=== PATIENT | male | born 1995 | race Caucasian/White ===

== ENCOUNTER 2023-12-26 14:25 | Inpatient (IN) ==
--- OUTSIDE RECORDS SUMMARY | 2023-12-26 14:32 | External Medical Summary | Summary of Care ---
Author Name Unknown Organization [facility] Address [address] [place] [address] Phone [phone] Care Team Providers Care Scrap Bunch Maker Name Role Phone Macho Mckay PA-C Primary Care Provi sumeet Reason for Visit * Reason Onset Date Comments Test Results 11/02/2023 Encounter Details Date Type Department Care Team (Late st Contact Info) Description 11/02/2023 Telephone Orthopaedics [facility] [address] [facility] [[email or web address] [place] [address] Services, Scheduling [address] [place] [address] Test Results Allergies No known active allergiesdocumented as of this encounter (statuses as of 11/02/2023) Medications Medication Sig Dispensed Refills Start Date End Date Status Amphetamine-Dextroa mphetamine 10 MG Oral Tablet Take 1 Tablet by mouth in the morning and 1 Tablet before bedtime. 0 Active Meclizine HCl 25 MG Oral Tablet (Antivert) Take 1 Tablet by mouth every 8 hours as needed for Dizziness. 30 Tablet 0 04/30/2023 Active Fluticasone Propionate 50 MCG/ACT Nasal Suspension (Flonase) Administer 1 [place] into nostril in the morning. 16 g 3 04/30/2023 Active Additional Information Patient not taking.Reported on 09/28/2023 Cyclobenzaprine HCl 10 MG Oral Tablet (Flexeril) Take 1 Tablet by mouth 3 times a day as needed for Muscle spasms. 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 documented as of this encounter (statuses as of 11/02/2023) Social History Tobacco Use Types Packs/Day Years Used Date Smoking Tobacco: Never Smokeless Tobacco: Current Chew Alcohol Use Standard Drinks/Week Comments Yes 0 (1 standard drink = 0.6 oz pur e alcohol) Occas Sex and Gender Information Value Date Recorded Sex Assigned at Not on file Gender Identity Not on file Sexual Orientation Not on file Job Start Date Occupation Industry Not on file Not on file Not on file documented as of this encounter Miscellaneous Notes * Telephone Encounter - Milagros Soto OSA - 11/02/2023 12:58 PM EST Mom of pt calling to see if someone can return her call to discuss pt MRI results. Ph. [phone] Please advise. * Telephone Encounter - Bossman Brown OSA - 11/02/2023 12:43 PM EST Mom of pt calling to see if someone can return her call to discuss pt MRI results. Ph. [phone] documented in this encounter Plan of Treatment Upcoming Encounters Date Type Department Care Team (Late st Contact Info) Description 11/20/2023 10:00 AM EST Office Visit [facility]ventional Pain [facility] [place] [address] Renee Christina PA-C [address] [place] [address] 01/14/2024 2:30 PM EDT Office Visit Orthopaedics Spine Surgery, Fletcher Zacarias [address] [place] [address] Bhanu Medrano MD [address] [place] [address] Health Maintenance Due Date Last Done Comments COVID-19 Vaccine (#1) 02/22/1996 DTaP,Tdap,and Td Vaccines (6 - Tdap) 2006 05/11/2000, 02/23/1997, 02/23/1997, Additional history exists Depression Screening 2007 HIV Screening 2010 Hepatitis C Screening 2013 Influenza Vaccine (FLU shot) (#1) 2023 Hepatitis B Completed 05/05/1996, 04/21, 1995, Additional history exists GARDASIL-HPV IMMUNIZATION SERIES Aged Out No longer eligible based on patient's age to complete this topic MENINGOCOCCAL (MENACTRA/MENVEO) Aged Out No longer eligible based on patient's age to complete this topic Pneumococcal Vaccine: Pediatrics (0 to 5 Years) and At-Risk Patients (6 to 64 Years) Aged Out No longer eligible based on patient's age to complete this topic documented as of this encounter Medical Devices Not on filedocumented as of this encounter Care Teams Scrap Bunch Maker Relationship Specialty Start Date End Date Macho Mckay PA-C [address] [address] [place] [address] PCP - General Physician Coding Compliance Auditor 04/30/23 documented as of this encounter
--- OUTSIDE RECORDS SUMMARY | 2023-12-26 14:32 | External Medical Summary | Summary of Care ---
Author Name Unknown Organization [facility] Address [address] [facility] [place] [address] Phone [phone] Care Team Providers Care Immigration Associate Name Role Phone Macho Mckay PA-C Primary Care Provi sumeet Reason for Visit * Reason Onset Date Comments Precert Denied 10/30/2023 L Spine Mri ivette ed, please call for p2p Encounter Details Date Type Department Care Team (Late st Contact Info) Description 10/30/2023 Telephone Orthopaedics [facility] [address] [place] [address] SharerSusannah PA-C [address] [place] [address] Precert Denied (L Spine Mri denied, please... Allergies No known active allergiesdocumented as of [...] 50 MCG/ACT Nasal Suspension (Flonase) Administer 1 [place] into nostril in the morning. 16 g [...] encounter Miscellaneous Notes * Telephone Encounter - Susannah Mendez PA-C - 11/02/2023 1:40 PM EST Peer to peer completed and MRI L spine was approved. Conformation number [id number] * Telephone Encounter - Lawrence Andrade OSA - 10/30/2023 10:02 AM EST The Mri Lumbar Spine requested for Sampson Fulton is currently in Peer to Peer Review with Theron. Please have a Nurse, ANGEL, GUERO or Physician [phone], Option 2 reference tracking # [id number] and speak with a Physician Reviewer to procure the required authorization. After reviewing your clinical notes, a Peer to Peer Review is required prior to approval of the requested study. Please call to obtain authorization. Rationale Your doctor told us that you are having lower back pain that travels to your hip and/or leg. Imaging requires six weeks of provider directed treatment to be completed. This must have been completed in the past three months without improved symptoms. Contact (via office visit, phone, email, or messaging) must occur after the treatment is completed. This has not been met because: You have not completed six weeks of provider directed treatment. The provider directed treatment did not occur within the last three months Alternatively, if the Peer to Peer will not be completed, please have a Clinician contact this patient to provide an alternative treatment plan. SALINA Vera 10/30/2023, 10:02 AM documented in this encounter Plan of Treatment Upcoming Encounters Date Type Department Care Team (Late st Contact Info) Description 11/20/2023 10:00 AM EST Office Visit Interventional Pain Center, [facility] [address] [place] [address] Renee Christina PA-C [address] [place] [address] 01/14/2024 2:30 PM EDT Office Visit Orthopaedics Spine Surgery, [address], Fletcher [address] [place] [id number] Bhanu Medrano MD [address] [facility] [place] [address] Health Maintenance Due Date Last Done Comments [...] filedocumented as of this encounter Care Teams Immigration Associate Relationship Specialty Start Date End Date Macho Mckay PA-C [address] [address] [place] [address] PCP - General Physician Fuel Cell Engineer 04/30/23 documented as of this encounter
--- OUTSIDE RECORDS SUMMARY | 2023-12-26 14:32 | External Medical Summary | Summary of Care ---
Author Name Unknown Organization [facility] Address [address] [place] [address] Phone [phone] Care Team Providers Care Shirt Sorter Name Role Phone Macho Mckay PA-C Primary Care Provi sumeet Reason for Referral * Evaluate & Treat - Unlimited Visits (Within 10 days (routine)) - Pending Review Specialty Diagnoses / Procedures Referred By Contac t Referred To Contact Physical Therapy / Physical Medicine And Rehab Diagnoses Lumbar back pain with radiculopathy affecting right lower extremity SharerSusannah PA-C [address] [place] [address] Referral ID Status Reason Start Date Expiration Date Visits Requested Visits Authorized [id number] Pending Review Specialty Services Required 10/26/[phone] Question Answer Referral Priority Within 10 days (routine) Where should this appointment be scheduled? External Comments Core strengthening, stretching, conditioning, lower extremity strengthening Modalities as needed for pain relief Physical therapy 2 x a week for 6 weeks with home program * Evaluate & Treat - Unlimited Visits (Within 10 days (routine)) - Pending Review Specialty Diagnoses / Procedures Referred By Contac t Referred To Contact Pain Management / Pain Medicine Diagnoses Lumbar back pain with radiculopathy affecting right lower extremity Susannah Bauer PA-C [address] [place] [address] Referral ID Status Reason Start Date Expiration Date Visits Requested Visits Authorized [id number] Pending Review Specialty Services Required 10/26/2023 [id number] Question Answer Referral Priority Within 10 days (routine) Where should this appointment be scheduled? [facility] Reason for referral? Interventional Pain Management - (Injection) What condition is the patient being referred for? Lumbar Radiculopathy What is the preferred location to have this test performed? [facility] Comments Patient Name: Sampson Fulton Date of : 1995 Department Phone Number: MRI or CT (if unable to have a MRI) is recommended if any of the following apply: 1. Patient has neck or back pain with radiation to extremities. A previous MRI will be accepted if symptoms unchanged since prior MRI. 2. Spinal surgery since last MRI. If yes, order a MRI with and without contrast. 3. Hx or ongoing cancer treatment. Patient will need spine x-ray (Ap/Lat) for axial neck or back pain if not done previously. Fax No. [facility] [phone] or contact manager front [phone] Fax No. [facility] [phone] or contact manager front [phone] Fax No. [facility] [phone] or contact manager front [phone] * Precert (Within 10 days (routine)) - Pending Review Specialty Diagnoses / Procedures Referred By Kacey bautista Referred To Contact Radiology Diagnoses Lumbar back pain with radiculopathy affecting right lower extremity Procedures MRI L SPINE WO CONTRAST Susannah Bauer PA-C [address] [place] [address] Referral ID Status Reason Start Date Expiration Date Visits Requested Visits Authorized [id number] Pending Review Precert 10/26/2023 04/23/[phone] Reason for Visit * Reason Comments NEW PATIENT Right hip/lower back * Evaluate & Treat - Unlimited Visits (Within 10 days (routine)) - Pending Review Specialty Diagnoses / Procedures Referred By Kacey bautista Referred To Contact Orthopaedic Surgery / Orthopedics Diagnoses Chronic right hip pain Jona Farley MD [address] [place] [address] Referral ID Status Reason Start Date Expiration Date Visits Requested Visits Authorized [id number] Pending Review Specialty Services Required 09/28/[phone] Encounter Details Date Type Department Care Team (Latest Contact Info) Description 10/26/2023 10:00 AM EST Office Visit Orthopaedics [facility] [address] [place] [address] SharerSusannah PA-C [address] [place] [address] Lumbar back pain with radiculopathy affecting right lower extremity* Allergies No known active allergiesdocumented as of this encounter (statuses as of 10/26/2023) Medications Medication Sig Dispensed Refills Start Date [...] 50 MCG/ACT Nasal Suspension (Flonase) Administer 1 [place] into nostril in the morning. 16 g 3 04/30/2023 Active Additional Information Patient not taking.Reported on 09/28/2023 Cyclobenzaprine HCl 10 MG Oral Tablet (Flexeril) Take 1 Tablet by mouth 3 times a day as needed for Muscle spasms. 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 History: Sampson Fulton reports that right back pain started 1 year ago. Patient denies any injury. Admits his work involves heavy lifting. 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 Reports pain along the right low back which radiates into the thigh and lower leg to the ankle. Pain is worse with seated or supine positions. States pain became severe about 8 weeks ago and is limiting his activities. States he is missing work and is unable to dress himself. Pain is relieved by standing. Patient has tried multiple rounds of prednisone, muscle relaxer and antiinflammatories. No numbness, tingling, burning, weakness. The patient denies associated perineal numbness, progressive weakness, or incontinence of bowel/bladder. Denies fever, chills, weight loss. The patient reports a history of: chronic right sided back pain treated with healthcare administrator Previous Surgery / Treatment of the spine: no LAURY No no spine surgery The patient reports the problem is not work related. 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 Review of systems: All others negative except those noted above in HPI. Review of patient's allergies indicates: No Known Allergies Current Outpatient Medications Medication Sig Dispense Refill Amphetamine-Dextroamphetamine 10 MG Oral Tablet Take 1 Tablet by mouth in the morning and 1 Tablet before bedtime. Meclizine HCl 25 MG Oral Tablet (Antivert) Take 1 Tablet by mouth every 8 hours as needed for Dizziness. 30 Tablet 0 Fluticasone Propionate 50 MCG/ACT Nasal Suspension (Flonase) Administer 1 [place] into nostril in themorning. (Patient not taking: Reported on 09/28/2023) 16 g 3 Cyclobenzaprine HCl 10 MG Oral Tablet (Flexeril) Take 1 Tablet by mouth 3 times a day as needed forMuscle spasms. (Patient not taking: Reported on 09/28/2023) 30 Tablet 0 No current facility-administered medications for this visit. No past medical history on file. Patient Active Problem List Diagnosis Code Attention deficit hyperactivity disorder (ADHD), predominantly inattentive type F90.0 No past surgical history on file. Social History Socioeconomic History Marital status: Spouse name: Not on file Number of children: Not on file Years of education: Not on file Highest education level: Not on file Occupational History Not on file Tobacco Use Smoking status: Never Smokeless tobacco: Current Types: Chew Vaping Use Vaping Use: Never used Substance and Sexual Activity Alcohol use: Yes Comment: Occas Drug use: Not Currently Sexual activity: Not on file Other Topics Concern Not on file Social History Narrative Not on file Social Determinants of Health Financial Resource Strain: Not on file Food Insecurity: Not on file Transportation Needs: Not on file Physical Activity: Not on file Stress: Not on file Social Connections: Not on file Intimate Partner Violence: Not on file Housing Stability: Not on file No family history on file. Family History; none relevant to today's HPI Objective: Physical Exam There were no vitals filed for this visit. Estimated body mass index is 29.62 kg/m as calculated from the following: Height as of 09/28/23: 1.905 m (6' 3"). Weight as of 09/28/23: 107.5 kg (237 lb). General: generally well-nourished and in no acute distress HEENT: normocephalic, atraumatic, sclera anicteric. Psych: mood and affect normal , cooperative Card: Peripheral pulses with regular rate and rhythm in affected extremity (s), Resp: equal chest rise, non-tachypneic, non-labored breathing Skin: no rash, normal Neuro: Sensation: normal on affected extremity (s) MSK: Back exam: Gait: Normal reciprocal gait. Non-antalgic without an assistive device on smooth flat indoor surface. Able to toe/heel/tandem walk without difficulty, and no loss of balance No pes planus, no pes cavus. Inspection: no overlying skin changes, no deformity Palpation: no tenderness to palpation Range of Motion: Lumbar ROM: limited forward flexion Pain worse with flexion Strength Abduction: R - 5/5 L - 5/5 Internal Rotation: R - 5/5 L - 5/5 Quads: R - 5/5 L - 5/5 Hamstrings: R - 5/5 L - 5/5 Adduction: R - 5/5 L - 5/5 Trendelenburg positive Bilateral Nerve root tests: Supine SLR- Right: positive Left: negative Hip/Pelvis exam Log Roll: negative Bilateral CALEB: negative Bilateral FADIR: negative Bilateral. Radiology (I have personally reviewed the following films): 10/26/2023 Lumbar spine x-ray reveals facet arthropathy and degenerative disc disease of the lower lumbar spine. No spondylolisthesis. No dynamic instability with flexion and extension. Assessment and Plan: Lumbar back pain with radiculopathy affecting right lower extremity (Primary) - XR L SPINE COMPLETE - MRI L SPINE WO CONTRAST; Future; Expected date: 11/02/2023 - PAIN MEDICINE REFERRAL OP - PHYSICAL THERAPY REFERRAL OP Given duration and severity of symptoms will obtain MRI. Recommend course of physical therapy. Discussed activity modification and ice/heat as needed for pain. Reviewed red flag symptoms of including progressive weakness or bowel/bladder incontinence. Aware to seek urgent care if such occurs. Susannah Bauer PA-C [facility] [address] [address] documented in this encounter Nursing Notes * Juana Walker MED ASSIST - 10/26/2023 10:09 AM EST Patient presents today for right lower back pain. Patient has been to [facility] multiple times for his hip. He was at chiropractor this morning, and they told him that there could be a bulging disk that is putting pressure on Sciatica nerve. Patient is unable to sit and lay down. NKI. Patient has appointment on 11/16 for MRI with outside. documented in this encounter Miscellaneous Notes * Addendum Note - Susannah Bauer PA-C - 10/26/2023 12:10 PM ESTAddended by: SUSANNAH BAUER on: 10/26/2023 12:10 PM Modules accepted: Level of Service documented in this encounter Plan of Treatment Upcoming Encounters Date Type Department Care Team (Late st Contact Info) Description 11/06/2023 4:00 PM EST Imaging Radiology [facility] 1st Floor, [place] [address] [place] [address] 12/03/2023 8:45 AM EDT Office Visit Interventional Pain Center, [facility] [address] [place] [address] Andrew Olsen DO [address] [place] [phone] 01/14/2024 2:30 PM EDT Office Visit Orthopaedics Spine Surgery, Fletcher Zacarias [address] [place] [address] Bhanu Medrano MD [address] [place] [address] Pending Results Name Type Priority Associated Diagnoses Date /Time XR L SPINE COMPLETE Medical Imaging Routine Lumbar back pain with radiculopathy affecting right lower extremity 10/26/2023 10:33 AM EST Scheduled Orders Name Type Priority Associated Diagnoses Orde r Schedule MRI L SPINE WO CONTRAST Medical Imaging Routine Lumbar back pain with radiculopathy affecting right lower extremity Expected: 11/02/2023 (Approximate), Expires: 11/23/2024 Scheduled Referrals Name Type Priority Associated Diagnoses Orde r Schedule PAIN MEDICINE REFERRAL OP Referral Within 10 days (routine) Lumbar back pain with radiculopathy affecting right lower extremity Ordered: 10/26/2023 PHYSICAL THERAPY REFERRAL OP Referral Within 10 days (routine) Lumbar back pain with radiculopathy affecting right lower extremity Ordered: 10/26/2023 Health Maintenance Due Date Last Done Comments [...] Not on filedocumented as of this encounter Visit Diagnoses Diagnosis Lumbar back pain with radiculopathy affecting right lower extremity- Primary documented in this encounter Care Teams Shirt Sorter Relationship Specialty Start Date End Date Macho Mckay PA-C [address] [address] [place] [address] PCP - General Physician Physician Liaison 04/30/23 documented as of this encounter
--- OUTSIDE RECORDS SUMMARY | 2023-12-26 14:32 | External Medical Summary | Summary of Care ---
Author Name Unknown Organization [facility] Address [address] [facility] [address] Phone [phone] Care Team Providers Care Mold Maker Plaster Name Role Phone Macho Mckay PA-C Primary Care Provi sumeet Reason for Visit * Reason Onset Date Comments Follow Up 12/25/2023 Encounter Details Date Type Department Care Team (Late st Contact Info) Description 12/25/2023 Telephone Interventional Pain Center, [facility] [address] [place] [id number] Andrew Olsen DO [address] [place] [phone] Follow Up Allergies No known active allergiesdocumented as of this encounter (statuses as of 12/25/2023) Medications Medication Sig Dispensed Refills Start Date [...] 50 MCG/ACT Nasal Suspension (Flonase) Administer 1 [place] into nostril in the morning. 16 g 3 04/30/2023 Active Cyclobenzaprine HCl 10 MG Oral Tablet (Flexeril)Indicatio ns:Lumbar radicular pain Take 1 Tablet by mouth as needed for Muscle spasms. Do not take more than three per day. 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 He is apparently in so much pain he can barely walk and would like to be seen today. Are you able to call them to seeif we can do anything? documented in this encounter Plan of Treatment Upcoming Encounters Date Type Department Care Team (Late st Contact Info) Description 12/25/2023 9:00 AM EDT Office Visit Interventional Pain Center, [facility] [address] [place] [address] Renee Christina PA-C [address] [facility] [place] [address] 01/14/2024 2:30 PM EDT Office Visit Orthopaedics Spine Surgery, [place] Zacarias [address] [place] [address] Bhanu Medrano MD [address] [place] [address] 01/20/2024 3:30 PM EDT Telemedicine Interventional Pain Center, [facility] [address] [place] [address] Renee Christina PA-C [address] [place] [address] Health Maintenance Due Date Last Done Comments DTaP,Tdap,and Td Vaccines (6 - Tdap) 2006 05/11/2000, 02/23/1997, 02/23/1997, Additional history exists Depression Screening 2007 HIV Screening 2010 Hepatitis C Screening 2013 COVID-19 Vaccine ( season) 2023 Influenza Vaccine (FLU shot) (Season Ended) 2024 Hepatitis B Completed 05/05/1996, 04/21, 1995, Additional [...] filedocumented as of this encounter Care Teams Mold Maker Plaster Relationship Specialty Start Date End Date Macho Mckay PA-C [address] [facility] [address] [place] [address] PCP - General Physician Administrative Asst 04/30/23 documented as of this encounter
--- OUTSIDE RECORDS SUMMARY | 2023-12-26 14:32 | External Medical Summary | Summary of Care ---
Author Name Unknown Organization [facility] Address [address] [place] [address] Phone [phone] Care Team Providers Care Amphibious Operations Officer Name Role Phone Mahco Mckay PA-C Primary Care Provi sumeet Reason for Referral * Evaluate & Treat - Unlimited Visits (Within 10 days (routine)) - Pending Review Specialty Diagnoses / Procedures Referred By Contac t Referred To Contact Physical Therapy / Physical Medicine And Rehab Diagnoses Lumbar back pain with radiculopathy affecting right lower extremity SharerSusannah PA-C [address] [place] [address] Referral ID Status Reason Start Date Expiration Date Visits Requested Visits Authorized [id number] Pending Review Specialty Services Required 10/26/2023 999 [...] lower extremity Susannah Bauer PA-C [address] [place] [address] Referral ID Status Reason Start Date Expiration Date Visits Requested Visits Authorized [id number] Pending Review Specialty Services Required 10/26/2023 999 999 Question Answer Referral Priority Within 10 days (routine) Where should this appointment be scheduled? [facility] Reason for referral? Interventional Pain Management - (Injection) What condition is the patient being referred for? Lumbar Radiculopathy What is the preferred location to have this test performed? [facility] Comments Patient Name: Sampson Fulton Date [...] pain if not done previously. Fax No. [facility] [phone] or contact front office administrator [phone] Fax No. [facility] [phone] or contact front office administrator [phone] Fax No. [facility] [phone] or contact front office administrator [phone] * Precert (Within 10 days (routine)) - Pending Review Specialty Diagnoses / Procedures Referred By Contac t Referred To Contact Radiology Diagnoses Lower back pain Procedures MRI L SPINE WO CONTRAST Susannah Bauer PA-C [address] [place] [address] Referral ID Status Reason Start Date Expiration Date V isits Requested Visits Authorized [id number] Pending Review 11/02/2023 999 999 Reason for Visit * Reason Comments NEW PATIENT Right hip/lower back * Evaluate & Treat - Unlimited Visits (Within 10 days (routine)) - Pending Review Specialty Diagnoses / Procedures Referred By Contac t Referred To Contact Orthopaedic Surgery / Orthopedics Diagnoses Chronic right hip pain Jona Farley MD [address] [place] [address] Referral ID Status Reason Start Date Expiration Date Visits Requested Visits Authorized [id number] Pending Review Specialty Services Required 09/28/2023 999 999 Encounter Details Date Type Department Care Team (Latest Contact Info) Description 10/26/2023 10:00 AM EST Office Visit Orthopaedics [facility] [address] [place] [address] Sharer, Susannah [place] PA-C [address] [place] [address] Lumbar back pain with radiculopathy affecting right [...] 50 MCG/ACT Nasal Suspension (Flonase) Administer 1 [place] into nostril in the morning. 16 g [...] as of this encounter Progress Notes * Sharer, Susannah [place] PA-C - 10/26/2023 10:40 AM EST Sampson Fulton is a 28 year old male who presents for consultation to [facility] Orthopedic Sports Medicine for back pain. History: Sampson Fulton reports that right back pain started 1 year ago. Patient denies any injury. Admits his work involves heavy lifting. 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 Reports pain along the right low back [...] chronic right sided back pain treated with patient care specialist Previous Surgery / Treatment of the spine: no LAURY No no spine surgery The patient reports the problem is not work related. 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 Review of [...] 50 MCG/ACT Nasal Suspension (Flonase) Administer 1 [place] into nostril in themorning. (Patient not taking: [...] care if such occurs. Susannah Bauer PA-C [facility] Orthopaedics [address] [place] [address] documented in this encounter Nursing Notes * Juana Walker MED ASSIST - 10/26/2023 10:09 AM EST Patient presents today for right lower back pain. Patient has been to [facility] multiple times for his hip. He [...] Description 11/06/2023 4:00 PM EST [facility] [address] [place] [address] 12/03/2023 8:45 AM EDT Office Visit Interventional Pain Center, [facility] [address] [place] [address] Andrew Olsen DO [address] [place] [id number] 01/14/2024 2:30 PM EDT Office Visit Orthopaedics Spine Surgery, Fletcher Zacarias [address] [place] [address] Bhanu Medrano MD [address] [place] [address] Pending Results Name Type Priority Associated Diagnoses [...] Primary documented in this encounter Care Teams Amphibious Operations Officer Relationship Specialty Start Date End Date Macho Mckay PA-C [address] [address] [place] [address] PCP - General Physician Distribution Designer 04/30/23 documented as of this encounter
--- OUTSIDE RECORDS SUMMARY | 2023-12-26 14:32 | External Medical Summary | Summary of Care ---
Author Name Unknown Organization [facility] Address [address] [facility] [place] [address] Phone [phone] Care Team Providers Care Oyster Fisherman Name Role Phone Macho Mckay PA-C Primary Care Provi sumeet Reason for Visit * Auth/Cert Specialty Diagnoses / Procedures Referred By Kacey bautista Referred To Contact Diagnoses Lumbar radiculopathy Lumbar radiculopathy [M54.16] Procedures INJECT DX/THER SUBSTANCE INTERLAMINAR LUMBAR/SACRAL W IMAGE GUIDE INJECTION SPINE LUMBAR OR SACRAL Andrew Olsen DO [address] [place] [address] Or [facility] [address] [place] [address] Referral ID Status Reason Start Date Expiration Date Visits Re quested Visits Authorized [id number] 999 999 Encounter Details Date Type Department Care Team (Latest Contact Info) Description 11/30/2023 7:45 AM EDT - 11/30/2023 9:04 AM EDT Hospital Encounter OR [facility], Operating Room [facility] [address] [place] [address] Andrew Olsen DO [address] [place] [address] Discharge Disposition: Home - Self Care Allergies No known active allergiesdocumented as of this encounter (statuses as of 11/30/2023) Medications Medication Sig Dispensed Refills Start Date [...] 50 MCG/ACT Nasal Suspension (Flonase) Administer 1 [place] into nostril in the morning. 16 g 3 04/30/2023 Active Cyclobenzaprine HCl 10 MG Oral Tablet (Flexeril)Indicatio ns:Lumbar radicular pain Take 1 Tablet by mouth as needed for Muscle spasms. Do not take more than three per day. 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 documented as of this encounter (statuses as of 11/30/2023) Social History Tobacco Use Types Packs/Day Years [...] on file documented as of this encounter Last Filed Vital Signs Vital Sign Reading Time Taken Comments Blood Pressure 141/89 11/30/2023 8:59 AM EDT Pulse 77 11/30/2023 8:59 AM EDT Temperature 36.3 C (97.3 F) 11/30/2023 8:27 AM ED T Respiratory Rate 14 11/30/2023 8:59 AM EDT Oxygen Saturation 99% 11/30/2023 8:59 AM EDT Inhaled Oxygen Concentration - - Weight - - Height - - Body Mass Index - - documented in this encounter Discharge Instructions * Discharge Instr - AVS* Andrew Olsen, DO - 11/30/2023 8:57 AM EDT [facility] [address] [place] [address], [place] [address] Discharge Date: 11/30/2023 You may call [facility] at [phone] during business hours. For after-hours emergencies call 911. Your attending physician at the time of your discharge was: Andrew Olsen DO [address] [place] [address] The information below provides you with the instructions and the list of medications you need to betaking following discharge from the hospital. If you have any questions, please ask before leaving.Please carry this letter with you when you see your doctor in the clinic. Diet: Resume your normal diet If you are diabetic, follow your blood sugars closely for next 2-3 days as they are likely to be elevated. If you are having difficulty controlling your blood sugars call your family doctor or the physician that treats your diabetes. Activity: Do not engage in strenuous activity today Resume your normal activities tomorrow Do not soak in water for 24 hours. No swimming, hot tub or bath but showering is allowed. Do not use heat on the injection site for 24 hours. If uncomfortable ice may be helpful. Some injections may make your arms or legs weak for a few hours. Be extremely careful when walking or changing positions that you do not fall. Have someone assist you for the next 6 hours. If weakness or numbness becomes progressive CALL IMMEDIATELY or GO TO THE NEAREST EMERGENCY ROOM Keep a diary of your pain until seen in the office to help us determine how effective the injectionwas Do not restart physical therapy or chiropractic manipulation until 48 hours after your injection Call : If weakness or numbness suddenly becomes worse or become progressive If the injection site becomes red, swollen, warm to the touch, begins to bleed or drain fluid, or is excessively painful. If you have any questions Medications: Resume all the medications you were taking prior to your injection. Resume your anticoagulants tomorrow unless otherwise instructed by your family physician, engineering specialist or the anticoagulation clinic. Additional Instructions: None Driving: You may resume driving in 12-24 hours if no weakness is noted . Date you may return to work or school: N/A Follow Up: Follow-up with Dr. Olsen or Renee Christina PA-C in 6-8 weeks via telehealth or in- person appointment per your preference. documented in this encounter Progress Notes * Andrew Olsen DO - 11/30/2023 8:57 AM EDT [facility] [address] [facility] [address] OUTPATIENT SURGERY DISCHARGE SUMMARY NOTE Name: Sampson Fulton Location: OR [facility]/OR Date: 11/30/2023 Time: 8:58 AM Surgery Date: 11/30/2023 Procedure: Procedure(s): INJECTION SPINE LUMBAR OR SACRAL No laterality found for procedure #1 Surgeon: Surgeon(s): Andrew Olsen DO Discharge Diagnosis: lumbar radicular pain After examination of this patient, I have determined he is ready for discharge to home when the patient meets criteria. Discharge instructions were given to the patient. Andrew Olsen DO OR [facility], Operating Room [facility] [address] [place] [address] documented in this encounter H&P Notes * Andrew Olsen DO - 11/30/2023 8:36 AM EDT Interventional Pain H&P Subjective: History of Present Illness: Sampson Fulton is a 28 year old year-old male with a past medical history significant for lumbar radicular pain who is presenting for right L4/5 LAURY to improve his pain and function. his pain is essentially unchanged since our last office visit with him. ASA 3 AW nml Review of Systems: A focused 12-pt ROS were of reviewed with the patient including difficulty with sleep, snoring, aspiration history, dysphagia, stomach pain, nausea and vomiting, severe headaches, confusion, open skin lesions or wounds, chest pain, shortness of breath, excessive thirst, somnolence, dysuria, incomplete bladder emptying, easy bruising, recent clotting problems or bleeding, depression or rushed thoughts unless noted previously. Review of patient's allergies indicates: No Known Allergies Medications, Past Medical History, Past Surgical History reviewed and documented in Epic. See detailed report if needed. Pertinent Labs/Test Results: No results found for: "INR" No results found for: "CREATININE" No results found for: "HGBA1C", "[id number]" No results found for: "AMPHETAMINE", "BARBITURATES", "BENZODIAZEPINES", "BUPRENORPHINE", "METHADONE", "OPIATES", "OXYCODONE", "PHENCYCLIDINE", "CANNABINOIDS", "TOX SCREEN", "URINE", "TOX SCREEN-SERUM", "TOX SCREEN, URINE" Imaging: I personally reviewed the imaging and my findings were . XR L SPINE COMPLETE Narrative: PROCEDURE INFORMATION: Exam: XR Lumbosacral Spine Exam date and time: 10/26/2023 10:27 AM Age: 28 years old Clinical indication: Low back pain, unspecified; Additional info: Right side back pain TECHNIQUE: Imaging protocol: Radiologic exam of the lumbosacral spine. Views: 4 or 5 views. COMPARISON: DX XR SACROILIAC JOINTS 3 OR MORE VIEWS 05/31/2023 8:19 PM FINDINGS: Bones/joints: There is moderate degenerative change at the L4-L5 and L5-S1 levels, more advanced than would be expected for patient age, with associated facet arthropathy. No acute fracture or subluxation. No aggressive osseous lesion. Soft tissues: Unremarkable. Vasculature: Multiple pelvic phleboliths are present. Other findings: Prevertebral and paravertebral soft tissues appear unremarkable. Impression: IMPRESSION: There is moderate degenerative change at the L4-L5 and L5-S1 levels, more advanced than would be expected for patient age, with associated facet arthropathy. THIS DOCUMENT HAS BEEN ELECTRONICALLY SIGNED BY EUGENE MA MD MRI L SPINE WO CONTRAST Narrative: EXAM MRI L SPINE WO CONTRAST-10/27/2023 3:13 pm HISTORY Low back pain; No applicable indication COMPARISON Radiographs of 2023 TECHNIQUE Sagittal T1, T2, STIR, axial T1, T2 sagittal images of lumbar spine are obtained. FINDINGS There are 5 lumbar type vertebrae. Conus terminates at T12-L1. Moderate disc disease at L3-L4, L4-5 and L5-S1. Congenitally narrow canal. Kidneys are normal iliopsoas muscle are normal. Findings by level: L1-2: Moderate facet arthropathy without foraminal narrowing L2-3: Moderate facet arthropathy mild canal narrowing without foraminal narrowing L3-4: Small disc herniation moderate to severe facet arthropathy mid moderate severe canal narrowing and mild bilateral foraminal narrowing L4-5: Small disc herniation moderate narrowing of each lateral recess moderate severe facet arthropathy and severe right foraminal narrowing. There is mild left foraminal narrowing. Pdgh-eu-tqejanle canal narrowing L5-S1: Moderate severe bilateral facet arthropathy mild disc herniation severe bilateral foraminal narrowing. Impression: IMPRESSION Degenerative changes at L3-S1 superimposed on congenital canal narrowing as described above. The worst level of canal narrowing is at L3-L4 where it is moderate to severe. Objective Physical Exam: Vital Signs: BP 148/85 | Pulse 74 | Temp 36.3 C (97.3 F) (Tympanic) | Resp 16 | SpO2 99% There is no height or weight on file to calculate BMI. General: No apparent distress. Eyes: pupils equal and round, sclera white, pupils midsize. ENT: mucous membranes moist Resp: Non-labored breathing CV: Extremities warm and well-perfused. Psych: Oriented; affect warm, insight good. Skin: No rashes or lesions appreciated on exposed skin Neuromuscular Exam: Facet loading neg, SLR 2pos, TTT over lumbar spine Assessment: Sampson is a 28 year old year-old male with: Lumbar radicular pain Plan: The patient is undergoing right L4/5 LAURY today to alleviate his pain and improve his function. The risks, benefits and alternatives to the procedure were reviewed at length and the patient was provided the opportunity to ask questions which were answered to their voiced understanding. Following this comprehensive discussion, the patient opted to proceed. The patient was consented to the procedurefollowing this comprehensive conversation. Andrew Olsen DO OR [facility], Operating Room [address] [address] documented in this encounter Nursing Notes * May Cordova RN - 11/30/2023 9:01 AM EDT Visited by Dr Olsen. Verbalized understanding of discharge directions. Ready for discharge to home. * Megan Jacobson RN - 11/30/2023 8:57 AM EDT Band aid applied to area. Patient transferred to PACU 11 via wheelchair * Megan Jacobson RN - 11/30/2023 8:52 AM EDT Patient tolerating pain management injection well. documented in this encounter OR Notes * OR Surgeon - Andrew Olsen DO - 11/30/2023 8:56 AM EDT INTERLAMINAR LUMBAR EPIDURAL STEROID INJECTION DATE: 11/30/2023 PHYSICIAN: Andrew Olsen DO PREOPERATIVE DIAGNOSIS: Lumbar spondylosis with lumbar radiculopathy. POSTOPERATIVE DIAGNOSIS: Lumbar spondylosis with lumbar radiculopathy. PROCEDURE PERFORMED: L4/5 interlaminar epidural steroid injection on the right side. Fluoroscopy for precise needle placement. ANESTHESIA: Local infiltration with 1% lidocaine. MONITORS: Automatic blood pressure cuff, pulse oximetry. There was no outreach assistant, EBL or drains placed during this procedure. INDICATIONS: I had the pleasure of seeing Sampson Fulton ([id number]) in the pain management clinic at the the [facility] today. Sampson Fulton is a 28 year old year-old male has ahistory of lumbar radiculopathy. he is here today for an interlaminar lumbar epidural steroid injection today. MEDICATIONS: No current facility-administered medications for this encounter. ALLERGIES: Review of patient's allergies indicates: No Known Allergies REVIEW OF SYSTEMS: Negative for fever, chills, chest pain, SOB, bleeding abnormalities, nausea, vomiting, diarrhea, worsening edema, or new rashes. FOCUSED PHYSICAL EXAMINATION: The patient is awake, alert and oriented, and is in no acute distress. Vital signs are stable. The patient is afebrile. The rest of the PE is essentially unchanged from the patient's recent visit to our office. I explained the procedure to the patient including the risks, benefits and alternatives to the procedure. The risks discussed with the patient included but were not limited to: bleeding, infection, and damage to surrounding nerves, tissues, and organs, paralysis, increased pain, pain at the site ofinjection, allergic reaction, blood pressure instability, seizures, heart block, headaches, increase in blood sugar, worsening of glaucoma, blindness, manic episodes, mood instability, . Alternatives to the procedure were also explained and include: do nothing, surgery, medications, and physical therapy. The patient verbalized understanding and was willing to proceed. PROCEDURE IN DETAIL: An informed consent was obtained. The patient was taken to the procedure room,was positively identified by the staff and attending physician. The patient was positioned prone onthe procedure bed. Vital signs were monitored as above and remained stable throughout the procedure. The skin was prepped and draped in a standard sterile fashion. A surgical pause time-out was performed and agreed upon by the members of the team. Fluoroscopic view of the lumbar spine was obtained and the area of interest was identified. The skin and subcutaneous tissues were anesthetized using 1% lidocaine and 25-gauge 1-1/2 inch needle. After that, a 20-gauge, 3.5-inch epidural needle was advanced towards the L4/5 interlaminar window in the right paramedian position. AP, contralateral oblique and lateral views were used to assess appropriate needle position. Loss of resistance to air technique was utilized and was obtained at 7 cmfrom the skin. The needle's position was additionally verified by injecting radiopaque dye, which showed spread of the dye in the epidural space in AP and lateral views. After negative aspiration forCSF and blood, 80 mg of Kenalog diluted in 2 mL of 1% lidocaine was injected into the epidural space. The needle was withdrawn. The patient tolerated the procedure well. COMPLICATIONS: None. DISPOSITION: No follow-ups on file. 1. Return to clinic in 1-2 months for follow-up evaluation, sooner as needed. 2. Resume activity as tolerated. 3. Patient can drive after 12-24 hours if no weakness noted. Andrew Olsen DO OR [facility], Operating Room [facility] [place] [address] documented in this encounter Plan of Treatment Upcoming Encounters Date Type Department Care Team (Late st Contact Info) Description 01/14/2024 2:30 PM EDT Office Visit Orthopaedics Spine Surgery, Fletcher Zacarias [address] [place] [address] Bhanu Medrnao MD [address] [place] [address] 01/20/2024 3:30 PM EDT Telemedicine Interventional Pain Center, [facility] [address] [place] [address] Renee Christina PA-C [address] [place] [address] Scheduled Procedures Name Priority Associated Diagnoses Date/Ti me INJECTION SPINE LUMBAR OR SACRAL Lumbar radiculopathy 11/30/2023 8:48 AM EDT Health Maintenance Due Date Last Done Comments DTaP,Tdap,and Td Vaccines (6 - Tdap) 2006 05/11/2000, 02/23/1997, 02/23/1997, Additional history exists Depression Screening 2007 HIV Screening 2010 Hepatitis C Screening 2013 COVID-19 Vaccine ( season) 2023 Influenza Vaccine (FLU shot) (#1) 2023 Hepatitis [...] Not on filedocumented as of this encounter Procedures Procedure Name Priority Date/Time Associated Diagnosis Comments FLUORO INTERVENTIONAL PAIN PROCEDURE NONBILLABLE Routine 11/30/2023 9:01 AM EDT documented in this encounter Results * FLUORO INTERVENTIONAL PAIN PROCEDURE NONBILLABLE (11/30/2023 9:01 AM EDT) Narrative Scheduling, Silent - 11/30/2023 9:02 AM EDT This procedure will not be read by a Radiologist. Please see operative note. Andrew Olsen DO RAD FLUOROSCOPY documented in this encounter Administered Medications Inactive Administered Medications - up to 3 most recent administrations Medication Order MAR Action Action Date Dose Rate Site Iohexol (Omnipaque 180) inj 0.5 mL 0.5 mL, Injection, ONCE, On Thu11/30/23 at 0845, For 1 dose Given 11/30/2023 8:54 AM EDT 1 mL lidocaine 1 % inj 20 mg 20 mg (2 mL), Subcutaneous, ONCE, On Thu11/30/23 at 0845, For 1 dose Given 11/30/2023 8:51 AM EDT 5 mL O ther-Specify Triamcinolone Acetonide (Kenalog) 40 MG/ML inj 40 mg 40 mg, Injection, ONCE, On Thu11/30/23 at 0845, For 1 dose Given 11/30/2023 8:55 AM EDT 80 mg documented in this encounter Active and Recently Administered Medications Due to Daylight Saving Time, this section may contain times in both EST and EDT. Scheduled Medication Order 11/28/2023 11/29/2023 11/30/2023 Iohexol (Omnipaque 180) inj 0.5 mL (COMPLETED) 0.5 mL, Injection, ONCE, On Thu11/30/23 at 0845, For 1 dose 0854 (Given - Provid er: Megan Jacobson RN - Comment: RIGHT L4L5) lidocaine 1 % inj 20 mg (COMPLETED) 20 mg (2 mL), Subcutaneous, ONCE, On Thu11/30/23 at 0845, For 1 dose 0851 (Given - Provid er: Megan Jacobson RN - Comment: RIGHT L4L5) Triamcinolone Acetonide (Kenalog) 40 MG/ML inj 40 mg (COMPLETED) 40 mg, Injection, ONCE, On Thu11/30/23 at 0845, For 1 dose 0855 (Given - Provid er: Megan Jacobson RN) documented in this encounter Care Teams Oyster Fisherman Relationship Specialty Start Date End Date Macho Mckay PA-C [address] [place] [address] [place] [id number] PCP - General Physician Per Diem Physical Therapist Assistant 04/30/23 documented as of this encounter
--- OUTSIDE RECORDS SUMMARY | 2023-12-26 14:32 | External Medical Summary | Summary of Care ---
Author Name Unknown Organization [facility] Address [address] [facility] [place] [address] Phone [phone] Care Team Providers Care Waste And Batting Waste Chopper Name Role Phone Macho Mckay PA-C Primary Care Provi sumeet Reason for Visit * Reason Onset Date Comments Follow Up 12/25/2023 Encounter Details Date Type Department Care Team (Late st Contact Info) Description 12/25/2023 Telephone Interventional Pain Center, [facility] [address] [place] [id number] Andrew Olsen DO [address] [place] [phone] Follow Up Allergies No known active allergiesdocumented [...] 50 MCG/ACT Nasal Suspension (Flonase) Administer 1 [place] into nostril in the morning. 16 g [...] encounter Miscellaneous Notes * Telephone Encounter - Lucita Negrete LPN - 12/25/2023 9:00 AM EDT Patient's mom called back. Was told by "Hope" that we had 9am opening and they are bringing him.made her aware it's a consult and not an injection. * Telephone Encounter - Chioma Ravi OSA [...] [address] [place] [address] Bhanu Medrano MD [address] [place] [address] 01/20/2024 3:30 PM EDT Telemedicine Interventional Pain Center, [facility] [address] [place] [address] Renee Christina PA-C [address] [place] [address] Health Maintenance Due Date Last Done Comments [...] filedocumented as of this encounter Care Teams Waste And Batting Waste Chopper Relationship Specialty Start Date End Date Macho Mckay PA-C 1 [facility] [address] [place] [address] PCP - General Physician Environmental Control Administrator 04/30/23 documented as of this encounter
--- OUTSIDE RECORDS SUMMARY | 2023-12-26 14:32 | External Medical Summary | Summary of Care ---
Author Name Unknown Organization [facility] Address [address] [facility] [place] [address] Phone [phone] Care Team Providers Care Cascade Operator Name Role Phone Macho Mckay PA-C Primary Care Provi sumeet Reason for Visit * Reason Comments Back Pain Encounter Details Date Type Department Care Team (Late st Contact Info) Description 12/25/2023 9:00 AM EDT Office Visit Interventional Pain Center, [facility] [address] [place] [address] Renee Christina PA-C [address] [place] [address] Lumbar radicular pain*; Spinal stenosis of lumbar region with neurogenic claudication Allergies No known active allergiesdocumented as of [...] 50 MCG/ACT Nasal Suspension (Flonase) Administer 1 [place] into nostril in the morning. 16 g 3 04/30/2023 Active Cyclobenzaprine HCl 10 MG Oral Tablet (Flexeril)Indicatio ns:Lumbar radicular pain Take 1 Tablet by mouth as needed for Muscle spasms. Do not take more than three per day. 30 Tablet 2 11/20/2023 Active Gabapentin 300 MG Oral Capsule (Neurontin) Take one capsule by mouth at night for one week then increase to one capsule AM and one capsule PM. 60 Capsule 2 12/25/2023 Active predniSONE 50 MG Oral Tablet (Deltasone) Take 1 Tablet by mouth in the morning. Take with food.. 5 Tablet 0 12/25/2023 Active documented as of this encounter (statuses [...] as of this encounter Progress Notes * Renee Christina PA-C - 12/25/2023 9:12 AM EDT Name: Sampson Fulton Date: 12/25/2023 HPI: Sampson Fulton is a 28 year old male known to the Pain Management clinic presents for follow updue to increased lumbar radicular pain in the past 48 hours. No injury. Hx right interlaminar LAURY L4/5 11/30/23, noting 85% relief lasting two and half weeks. 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 Our nurse was able to speak to them, again already on their way to clinic - arrived approximately9:10. Locates pain right low back, buttock radiate to medial, posterior and lateral thigh and calf on right. Rates pain 9/10 and is constant in nature. Concerned pain is now extending up to shoulder blade region. Also feels it is extending further into LE, now to foot. Paresthesia R LE in similar pattern, medial/posterior/lateral thigh and calf. Denies weakness B LE - notes walking and standing is mostrelief he iable to get. Denies LEFT LE symptoms. Denies bowel/bladder dysfunction. Using flexeril, advil, tylenol for pain relief. Unable to sleep due to pain. 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 Consultation with Dr. Medrano later this month. Presents with dad Noel. History: No past medical history on file. Past Surgical History: Procedure Laterality Date INJECT DX/THER SUBSTANCE INTERLAMINAR LUMBAR/SACRAL W IMAGE GUIDE 11/30/2023 INJECTION SPINE LUMBAR OR SACRAL performed by Andrew Olsen DO at OR [facility] Current Outpatient Medications Medication Sig Dispense Refill Amphetamine-Dextroamphetamine 10 MG Oral Tablet Take 1 Tablet by mouth in the morning and 1 Tablet before bedtime. Fluticasone Propionate 50 MCG/ACT Nasal Suspension (Flonase) Administer 1 [place] into nostril in themorning. 16 g 3 Cyclobenzaprine HCl 10 MG Oral Tablet (Flexeril) Take 1 Tablet by mouth as needed for Muscle spasms. Do not take more than three per day. 30 Tablet 2 Meclizine HCl 25 MG Oral Tablet (Antivert) Take 1 Tablet by mouth every 8 hours as needed for Dizziness. 30 Tablet 0 No current facility-administered medications for this visit. Review of patient's allergies indicates: No Known Allergies ROS: CONSTITUTIONAL: Denies anorexia, weight loss, fever, night sweats. RESPIRATORY: Denies shortness of breath, wheezing, productive cough. CARDIOVASCULAR: Denies chest pains, irregular heartbeat. HEME: Denies easy bruising and anticoagulation use. ROS EXAM: Remainder of ROS negative as discussed above in the HPI. PHYSICAL EXAM: There were no vitals taken for this visit. GENERAL: WD/WN male who is awake and alert. Prefers to stand due to pain. Portions of exam difficult to complete due to severity of pain - particularly when asked to sit. MENTAL STATUS: Oriented x 3. Pleasant and cooperative with normal affect. LUMBAR SPINE: No gross abnormalities. Skin is intact. No lesions visualized. Midline and B paravertebral musculature nontender. B sacroiliac joint nontender. Limited active ROM with flexion and extension of the lumbar spine. Straight leg raise: positive R, negative L. DEEP TENDON REFLEXES: 2/4 patellar and achilles bilaterally STRENGTH: 5/5 in all major motor groups lower extremities bilaterally. SENSATION: Not formally tested. No gross sensory deficits lower extremities bilaterally. GAIT/COORDINATION: Gait is intact. Ambulates without assistance. ASSESSMENT: Lumbar radicular pain Spinal stenosis with neurogenic claudication RECOMMENDATION: Significant short term relief with initial LAURY. Acute progression R LE radiculopathy x's 48 hours, no injury. Will start oral steroid - advised to avoid other NSAID (ibuprofen, aleve) while using, encouraged to take with foot. Also discussed gabapentin due to paresthesia and radicular nature of pain. Will begin gabapentin 300 mg QHS for one week, then increase to one capsule BID. Possible side effects such as increased fatigue, drowsiness or dizziness were reviewed and accepted. Advised to report to [facility] ED if symptoms continue to worsen and or experiences bowel or bladder incontinence. Has ortho spine consultation with Dr. Medrano later this month, will send staff message to see if they have a cancellation list. Can consider repeat LAURY, although somewhat concerned for short term response. I spent a total of 20-29 minutes (exact time 29 mins) on the date of service in preparation, delivery, and documentation of the care provided to Sampson Fulton excluding any time spent in the performance of separately billed services. Renee Christina PA-C 12/25/2023 documented in this encounter Nursing Notes * Lucita Negrete LPN - 12/25/2023 9:12 AM EDT Patient reports increased pain 1wk ago and worse in the last 24hrs-pain radiates down left leg, difficulty sleeping Did have improvement after injection for 2.5 weeks Using Flexeril, Advil, Naproxen, tylenol without relief documented in this encounter Plan of Treatment Upcoming Encounters Date Type Department Care Team (Late st Contact Info) Description 01/14/2024 2:30 PM EDT Office Visit Orthopaedics Spine Surgery, [facility] [address] [place] [address] Bhanu Medrano MD [address] [place] [address] 01/20/2024 3:30 PM EDT Telemedicine Interventional Pain Center, [facility] [address] [facility] [place] [address] Renee Christina PA-C [address] [place] [address] Health Maintenance Due Date Last Done Comments [...] of this encounter Visit Diagnoses Diagnosis Lumbar radicular pain- Primary Thoracic or lumbosacral neuritis or radiculitis, unspecified Spinal stenosis of lumbar region with neurogenic claudication Spinal stenosis, lumbar region, with neurogenic claudication documented in this encounter Care Teams Cascade Operator Relationship Specialty Start Date End Date Macho Mckay PA-C [address] [place] [address] PCP - General Physician Tile Mechanic Helper 04/30/23 documented as of this encounter
--- OUTSIDE RECORDS SUMMARY | 2023-12-26 14:32 | External Medical Summary | Summary of Care ---
Author Name Unknown Organization [facility] Address [address] [facility] [address] Phone [phone] Care Team Providers Care Classifier Name Role Phone Macho Mckay PA-C Primary Care Provi sumeet Encounter Details Date Type Department Care Team (Late st Contact Info) Description 11/04/2023 Orders Only Fertility [facility] [address] [place] [address] Kimberly Cramer PA-C [address] [place] [address] Fertility testing* Allergies No known active allergiesdocumented as of this encounter (statuses as of 11/04/2023) Medications Medication Sig Dispensed Refills Start Date [...] 50 MCG/ACT Nasal Suspension (Flonase) Administer 1 [place] into nostril in the morning. 16 g 3 04/30/2023 Active Additional Information Patient not taking.Reported on 09/28/2023 Cyclobenzaprine HCl 10 MG Oral Tablet (Flexeril) Take 1 Tablet by mouth 3 times a day as needed for Muscle spasms. 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 documented as of this encounter (statuses as of 11/04/2023) Social History Tobacco Use Types Packs/Day Years [...] on file documented as of this encounter Plan of Treatment Upcoming Encounters Date Type Department Care Team (Late st Contact Info) Description 11/20/2023 10:00 AM EST Office Visit Interventional Pain Center, [facility] [address] [place] [address] Renee Christina PA-C [address] [place] [address] 01/14/2024 2:30 PM EDT Office Visit Orthopaedics Spine Surgery, [facility] [address] [place] [address] Bhanu Medrano MD [address] [place] [address] Scheduled Orders Name Type Priority Associated Diagnoses Orde r Schedule SEMEN ANALYSIS COMPLETE WITH STRICT MORPHOLOGY Lab Routine Fertility testing 1 Occurrences starting 11/04/2023 until 11/04/2024 Health Maintenance Due Date Last Done Comments [...] as of this encounter Visit Diagnoses Diagnosis Fertility testing- Primary documented in this encounter Care Teams Classifier Relationship Specialty Start Date End Date Macho Mckay PA-C [address] [address] [place] [address] PCP - General Physician Prefabricator 04/30/23 documented as of this encounter
--- OUTSIDE RECORDS SUMMARY | 2023-12-26 14:32 | External Medical Summary | Summary of Care ---
Author Name Unknown Organization [facility] Address [address] [place] [address] Phone [phone] Care Team Providers Care Eap Counselor Name Role Phone Macho Mckay PA-C Primary Care Provi sumeet Reason for Visit * Reason Onset Date Comments Order Request 10/26/2023 Orbits xray Encounter Details Date Type Department Care Team (Late st Contact Info) Description 10/26/2023 Telephone Radiology, [facility] [address] [place] [address] Services, Scheduling [address] [place] [address] Order Request (Orbits xray) Allergies No known active allergiesdocumented as of this encounter (statuses as of 10/27/2023) Medications Medication Sig Dispensed Refills Start Date [...] 50 MCG/ACT Nasal Suspension (Flonase) Administer 1 [place] into nostril in the morning. 16 g 3 04/30/2023 Active Additional Information Patient not taking.Reported on 09/28/2023 Cyclobenzaprine HCl 10 MG Oral Tablet (Flexeril) Take 1 Tablet by mouth 3 times a day as needed for Muscle spasms. 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 Please place order. Thank you documented in this encounter Plan of Treatment Upcoming Encounters Date Type Department Care Team (Late st Contact Info) Description 11/20/2023 10:00 AM EST Office Visit Interventional Pain Center, [facility] [address] [place] [address] Renee Christina PA-C [address] [place] [address] 01/14/2024 2:30 PM EDT Office Visit Orthopaedics Spine Surgery, [facility] [address] [place] [address] Bhanu Medrano MD [address] [place] [address] Health Maintenance Due Date Last Done Comments [...] Not on filedocumented as of this encounter Results * XR EYE FOREIGN BODY PRE MRI (10/27/2023 2:05 PM EST) Anatomical Region Laterality Modality Head Computed Radiogr aphy 10/27/2023 2:09 PM EST Impressions 10/27/2023 2:07 PM EST IMPRESSION Orbits cleared for MRI. Narrative 10/27/2023 2:07 PM EST EXAM XR EYE FOREIGN BODY PRE MRI-10/27/2023 2:05 pm HISTORY pre mri COMPARISON None TECHNIQUE Water's and lateral views of the orbits were performed. FINDINGS No radiopaque foreign bodies are identified in the orbits. Procedure Note Herb Colvin MD - 10/27/2023 EXAM XR EYE FOREIGN BODY PRE MRI-10/27/2023 2:05 pm HISTORY pre mri COMPARISON None TECHNIQUE Water's and lateral views of the orbits were performed. FINDINGS No radiopaque foreign bodies are identified in the orbits. IMPRESSION IMPRESSION Orbits cleared for MRI. [place] [facility] ([facility]) documented in this encounter Visit Diagnoses Diagnosis Encounter for imaging to screen for metal prior to MRI- Primary Special screening for other specified conditions Encounter for imaging to screen for metal prior to MRI Special screening for other specified conditions documented in this encounter Care Teams Eap Counselor Relationship Specialty Start Date End Date Macho Mckay PA-C [address] [place] [address] PCP - General Physician Display Coordinator 04/30/23 documented as of this encounter
--- OUTSIDE RECORDS SUMMARY | 2023-12-26 14:32 | External Medical Summary | Summary of Care ---
Author Name Unknown Organization [facility] Address [address] [place] [address] Phone [phone] Care Team Providers Care Hydro Station Supervisor Name Role Phone Macho Mckay PA-C Primary Care Provi sumeet Reason for Visit * Reason Onset Date Comments Test Results 11/02/2023 Encounter Details Date Type Department Care Team (Late st Contact Info) Description 11/02/[address] [facility] [address] [facility] [place] [address] Services, Scheduling [address] [place] [address] Test Results Allergies No known active allergiesdocumented [...] 50 MCG/ACT Nasal Suspension (Flonase) Administer 1 [place] into nostril in the morning. 16 g [...] Encounter - Susannah Mendez PA-C - 11/02/2023 1:42 PM EST Left message with patient to discuss results. Will need to obtain consent prior to review results with his mother. * Telephone Encounter - Milagros Soto OSA - 11/02/2023 12:58 PM EST Mom of pt calling to see if someone can return her call to discuss pt MRI results. Ph. [phone] Please advise. * Telephone Encounter - Bossman Brown OSA - 11/02/2023 12:43 PM EST Mom of pt calling to see if someone can return her call to discuss pt MRI results. Ph. [phone] documented in this encounter Plan of Treatment Upcoming Encounters Date Type Department Care Team (Late st Contact Info) Description 11/20/2023 10:00 AM EST Office Visit Interventional Pain Center, [facility] [address] [place] [address] Renee Christina PA-C [address] [place] [address] 01/14/2024 2:30 PM EDT Office Visit Orthopaedics Spine Surgery, [facility] [address] [place] [address] Bhanu Medrano MD [address] [place] [address] Health Maintenance Due Date Last Done Comments [...] filedocumented as of this encounter Care Teams Hydro Station Supervisor Relationship Specialty Start Date End Date Macho Mckay PA-C [address] [place] [address] PCP - General Physician Spinning Lathe Operator Hydraulic 04/30/23 documented as of this encounter
--- OUTSIDE RECORDS SUMMARY | 2023-12-26 14:32 | External Medical Summary | Summary of Care ---
Author Name Unknown Organization [facility] Address [address] [facility] [place] [address] Phone [phone] Care Team Providers Care Content Coordinator Name Role Phone Macho Mckay PA-C Primary Care Provi sumeet Reason for Visit * Reason Comments Back Pain * Evaluate & Treat - Unlimited Visits (Within 10 days (routine)) - Pending Review Specialty Diagnoses / Procedures Referred By Contkatt t Referred To Contact Pain Management / Pain Medicine Diagnoses Lumbar back pain with radiculopathy affecting right lower extremity SharerSusannah PA-C [address] [place] [address] Referral ID Status Reason Start Date Expiration Date Visits Requested Visits Authorized [id number] Pending Review Specialty Services Required 10/26/[phone] Encounter Details Date Type Department Care Team (Late st Contact Info) Description 11/20/2023 10:00 AM EST Office Visit [facility], [facility] [address] [place] [address] Renee Christina PA-C [address] [place] [address] Lumbar radicular pain* Allergies No known active allergiesdocumented as of this encounter (statuses as of 11/20/2023) Medications Medication Sig Dispensed Refills Start Date End Date Status Amphetamine-Dext roamphetamine 10 MG Oral Tablet Take 1 Tablet by mouth in the morning and 1 Tablet before bedtime. 0 Active Meclizine HCl 25 MG Oral Tablet (Antivert) Take 1 Tablet by mouth every 8 hours as needed for Dizziness. 30 Tablet 0 04/30/2023 Active Fluticasone Propionate 50 MCG/ACT Nasal Suspension (Flonase) Administer 1 [place] into nostril in the morning. 16 g 3 04/30/2023 Active Naproxen 500 MG Oral Tablet (Naprosyn) Take 1 Tablet by mouth 2 times a day as needed (pain) for up to 7 days. 14 Tablet 0 08/31/2023 11/20/2023 Active Cyclobenzaprine HCl 10 MG Oral Tablet (Flexeril)Indica tions:Lumbar radicular pain Take 1 Tablet by mouth as needed for Muscle spasms. Do not take more than three per day. 30 Tablet 2 11/20/2023 Active Cyclobenzaprine HCl 10 MG Oral Tablet (Flexeril) Take 1 Tablet by mouth 3 times a day as needed for Muscle spasms. 30 Tablet 0 05/25/2023 11/20/2023 Discontinue d(Refill) predniSONE 20 MG Oral Tablet (Deltasone) Take 2 Tablets by mouth in the morning for 5 days. 10 Tablet 0 08/31/2023 11/20/2023 Discontinue d(Medicatio n List Clean Up) Cephalexin 500 MG Oral Capsule (Keflex) Take 1 Capsule by mouth in the morning and 1 Capsule before bedtime. Do all this for 7 days. 14 Capsule 0 09/28/2023 11/20/2023 Discontinue d(Medicatio n List Clean Up) predniSONE 50 MG Oral Tablet (Deltasone) Take 1 Tablet by mouth in the morning for 5 days. 5 Tablet 0 09/28/2023 11/20/2023 Discontinue d(Medicatio n List Clean Up) documented as of this encounter (statuses as of 11/20/2023) Active Problems Problem Noted Date Diagnosed Date Attention deficit hyperactiv ity disorder (ADHD), predominantly inattentive type 07/31/2020 documented as of this encounter (statuses as of 11/20/2023) Social History Tobacco Use Types Packs/Day Years [...] Progress Notes * Renee Christina PA-C - 11/20/2023 9:57 AM EST GENERAL HISTORY & PHYSICAL EXAMINATION - Anesthesia and Pain Service Name: Sampson Fulton [facility]: [facility] REFERRING PHYSICIAN: Susannah Mendez PA-C Thank you for referring Sampson Fulton. CHIEF COMPLAINT: low back and R LE pain HPI: Sampson Fulton is a 28 year old male who complains of low back pain that radiates to R LE diffusely, affecting anterior, lateral and posterior - can extend to foot. This pain started more than one year ago without preceding injury. Progressively worsened without incident. Evaluated at ED and Sep 2023 fir this complaint, temporary relief with oral steroid. PCP provided R trochanteric bursa injection approximately three months ago, no significant pain relief. Evaluated by ortho urgent care 10/26 who updated L spine MRI and placed referral to our office. Reviewed L MRI 10/27/23 - congenitally short canal, diffuse facet arthropathy moderate to severe L4/5 and L3/4, moderate to severe central stenosis L3/4, severe R foraminal narrowing L4/5 and L5/S1. Mild relief with home stretching program, chiropractic manipulation x's three months, home inversion table, moist heat, TENS unit. He is willing to try PT, referral faxed to clinic in [place] per patient request. Symptoms occur daily. Describes pain as sharp, stabbing. Pain is constant, rated 6/10. Aggravating factors include: lumbar flexion, walking, standing. Difficulty dressing due to pain for past four months. Can bring him to tears. Temporarily alleviated with moist heat. Admits associated LE weakness. Denies LE paresthesia. Denies L LE radicular pain, paresthesia or weakness. Denies bowel or bladder incontinence. Denies hx spine surgery or injections. Pain is affecting ADL. 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 Significant past medical hx includes: ADHD. Current medications used for pain: tylenol, advil, naproxen. Past medications used for pain: flexeril, multiple rounds oral steroid, icy hot. Anticoagulation therapy: no Diabetic: no Presents with motherWendy. PAST MEDICAL HISTORY: No past medical history on file. Past Medical History - Pertinent Findings: (-) clotting disorder PAST SURGICAL HISTORY: No past surgical history on file. FAMILY HISTORY: No family history on file. Family History - Pertinent Findings: (-) clotting disorder SOCIAL HISTORY: Social History Tobacco Use Smoking status: Never Smokeless tobacco: Current Types: Chew Vaping Use Vaping Use: Never used Substance Use Topics Alcohol use: Yes Comment: Occas Drug use: Not Currently CURRENT MEDICATIONS: Note that discontinued and completed medications (per the MAR) continue to display for 24 hours. Ordered medications to be given in the future also display. Current Outpatient Medications Medication Sig Dispense Refill Amphetamine-Dextroamphetamine 10 MG Oral Tablet Take 1 Tablet by mouth in the morning and 1 Tablet before bedtime. Meclizine HCl 25 MG Oral Tablet (Antivert) Take 1 Tablet by mouth every 8 hours as needed for Dizziness. 30 Tablet 0 Fluticasone Propionate 50 MCG/ACT Nasal Suspension (Flonase) Administer 1 [place] into nostril in themorning. 16 g 3 Cyclobenzaprine HCl 10 MG Oral Tablet (Flexeril) Take 1 Tablet by mouth 3 times a day as needed forMuscle spasms. 30 Tablet 0 Naproxen 500 MG Oral Tablet (Naprosyn) Take 1 Tablet by mouth 2 times a day as needed (pain) for upto 7 days. 14 Tablet 0 No current facility-administered medications for this visit. ALLERGIES: Patient has no known allergies. ROS: Constitutional: Negative for fatigue, fever, appetite change, unexplained weight loss. ENT: Negative for hearing loss, sore throat. Respiratory: Negative for cough, shortness of breath, dyspnea. Musculoskeletal: Negative for neck, mid-back pain. + low back and R LE pain - see HPI Neurological: Negative for headaches, seizures. Genitourinary: Negative for dysuria, urinary frequency, hematuria. Hematologic/ Lymphatic: Negative for easy bleeding, bruising, lymphadenopathy. Gastrointestinal: Negative for abdominal pain, nausea, vomiting, constipation, diarrhea. Cardiovascular: Negative for chest pain, palpitations, ankle swelling, orthopnea. PHYSICAL EXAMINATION: Most Recent Vital Signs: There were no vitals filed for this visit. General Appearance: Patient appears to be about stated age, pleasant and cooperative with normal affect. Disheveled appearance - significant amount of grease/dirt on clothing and hands. HEENT: head normocephalic, pupils equal round and reactive to light and accommodation, EOMI, hearing intact and equal bilaterally, and nose clear, throat normal Chest: No gross abnormality. Nonlabored breathing. Lumbar Spine: Normal lumbar lordatic curvature is present. Skin is intact without gross abnormalities. No masses palpable. Midline, B paravertebral musculature, B sacroiliac joint nontender. No evidence of myofascial trigger points. Full active ROM with flexion and extension of the lumbar spine. Lower Extremity Strength: Hip Flexion 5/5 bilaterally. Hip Abductor 5/5 bilaterally. Hip Adductor 5/5 bilaterally. Extensor Hallicus Longus 5/5 bilaterally. Deep Tendon Reflex: Patellar: 2/4 bilaterally. Achilles: 2/4 bilaterally. Low Back Provocative Testing: CALEB test: negative bilaterally. Straight Leg Raise Test: positive R, negative L. Lumbar Facet Loading: positive bilaterally. Sensation: Dermatomal sensation not formally tested. Grossly normal and symmetric unless otherwise specified. Gait: Intact, no sign of ataxia. Ambulates without assistance. IMAGING: MRI L SPINE WO CONTRAST 10/27/2023 3:13 pm There are 5 lumbar type vertebrae. Conus [...] narrowing. There is mild left foraminal narrowing. [id number] canal narrowing L5-S1: Moderate severe bilateral facet arthropathy mild disc herniation severe bilateral foraminal narrowing. IMPRESSION Degenerative changes at L3-S1 superimposed on congenital canal narrowing as described above. The worst level of canal narrowing is at L3-L4 where it is moderate to severe. XR Lumbosacral Spine 10/26/2023 10:27 AM Bones/joints: There is moderate degenerative change at the L4-L5 and L5-S1 levels, more advanced than would be expected for patient age, with associated facet arthropathy. No acute fracture or subluxation. No aggressive osseous lesion. Soft tissues: Unremarkable. Vasculature: Multiple pelvic phleboliths are present. Other findings: Prevertebral and paravertebral soft tissues appear unremarkable. IMPRESSION: There is moderate degenerative change at the L4-L5 and L5-S1 levels, more advanced than would be expected for patient age, with associated facet arthropathy. ASSESSMENT: Lumbar radicular pain, R LE Congenital lumbar spinal stenosis PLAN: Chronic low back pain with progressive R LE radiculopathy despite greater than three months of conservative care. Neurologically intact. Reviewed L spine MRI 10/27/23 - congenitally short canal, diffuse facet arthropathy moderate to severe L4/5 and L3/4, moderate to severe central stenosis L3/4, severe R foraminal narrowing L4/5 and L5/S1. Discussed LAURY using fluoroscopy. Risks including, but not limited to, bleeding into spine, infection, worsening pain, failure to alleviate pain, nerve injury and possible steroid side effects were reviewed. 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 Due to severity and duration of symptoms, will schedule R interlaminar LAURY L4/5. Follow up six weeks after procedure. Encouraged to keep surgical consultation, in light of sever facet arthropathy, central and foraminal narrowing feel he should be established with team. Discussed refilling flexeril, felt this provided some benefit. Will avoid using when driving. Awareof potential dizziness/drowsiness. Will seek urgent care if LE weakness worsening, or beings to experience LE paresthesia, bowel/bladder incontinence. Renee Christina PA-C 11/20/2023 documented in this encounter Nursing Notes * Lucita Negrete LPN - 11/20/2023 9:56 AM EST Patient here for low back, right hip and thigh pain x1yr Just finished oral steroids and pain is now returning Using naproxen and flexeril MRI in chart No PT Seeing chiro documented in this encounter Miscellaneous Notes * Pt Handout (on AVS) - Renee Christina PA-C - 11/20/2023 10:43 AM EST Images from the original note were not included. Lumbar Epidural Steroid Injection - Video This injection procedure is performed to relieve low back and radiating leg pain. Steroid medication can reduce the swelling and inflammation caused by spinal conditions. To view the video go to this web address: [email or web address] Or, scan this QR code with your smart phone Protection Plus documented in this encounter Plan of Treatment Upcoming Encounters Date Type Department Care Team (Late st Contact Info) Description 01/14/2024 2:30 PM EDT Office Visit Orthopaedics Spine Surgery, [facility] [address] [place] [address] Bhanu Medrano MD [address] [place] [id number] Scheduled Orders Name Type Priority Associated Diagnoses Orde r Schedule INJECT DX/THER SUBSTANCE INTERLAMINAR LUMBAR/SACRAL W IMAGE GUIDE Procedures Routine Lumbar radicular pain Expected: 02/20/2024 (Approximate), Expires: 12/20/2024 Health Maintenance Due Date Last Done Comments [...] Thoracic or lumbosacral neuritis or radiculitis, unspecified documented in this encounter Care Teams Content Coordinator Relationship Specialty Start Date End Date Macho Mckay PA-C [address] [address] [place] [id number] PCP - General Physician Gas Pumper 04/30/23 documented as of this encounter
--- OUTSIDE RECORDS SUMMARY | 2023-12-26 14:33 | External Medical Summary | Summary of Care ---
Author Name Unknown Organization [facility] Address [address] [place] [address] Phone [phone] Care Team Providers Care Shipping/Receiving Clerk Name Role Phone Macho Mckay PA-C Primary Care Provi sumeet Reason for Visit * Reason Onset Date Comments Films 10/02/2023 Encounter Details Date Type Department Care Team (Late st Contact Info) Description 10/02/2023 Telephone Radiology Film File [address] [place] [address] Mayra Greene, DO [address] [place] [address] Films Allergies No known active allergiesdocumented as of this encounter (statuses as of 10/02/2023) Medications Medication Sig Dispensed Refills Start Date End Date Status Amphetamine-Dextr oamphetamine 10 MG Oral Tablet Take 1 Tablet by mouth in the morning and 1 Tablet before bedtime. 0 Active Meclizine HCl 25 MG Oral Tablet (Antivert) Take 1 Tablet by mouth every 8 hours as needed for Dizziness. 30 Tablet 0 04/30/2023 Active Fluticasone Propionate 50 MCG/ACT Nasal Suspension (Flonase) Administer 1 [place] into nostril in the morning. 16 g 3 04/30/2023 Active Additional Information Patient not taking.Reported on 09/28/2023 Cyclobenzaprine HCl 10 MG Oral Tablet (Flexeril) Take 1 Tablet by mouth 3 times a day as needed for Muscle spasms. 30 Tablet 0 05/25/2023 Active Additional Information Patient not taking.Reported on 09/28/2023 Cephalexin 500 MG Oral Capsule (Keflex) Take 1 Capsule by mouth in the morning and 1 Capsule before bedtime. Do all this for 7 days. 14 Capsule 0 09/28/2023 10/05/2023 Active predniSONE 50 MG Oral Tablet (Deltasone) Take 1 Tablet by mouth in the morning for 5 days. 5 Tablet 0 09/28/2023 10/03/2023 Active documented as of this encounter (statuses as of 10/02/2023) Active Problems Problem Noted Date Diagnosed Date Attention deficit hyperactiv ity disorder (ADHD), predominantly inattentive type 07/31/2020 documented as of this encounter (statuses as of 10/02/2023) Social History Tobacco Use Types Packs/Day Years [...] encounter Miscellaneous Notes * Telephone Encounter - Marquita Pedro OSA - 10/02/2023 11:19 AM EST [facility] Orthopedics department requesting 05-31-23 to present xray images be pushed through PACS. [place] Authorization to Release on file. Images pushed to [facility] PACS external connection. Associated report(s) not needed. documented in this encounter Plan of Treatment Upcoming Encounters Date Type Department Care Team (Late st Contact Info) Description 10/09/2023 2:30 PM EST Office Visit Orthopaedics [facility] [address] [place] [address] Johnnie Rodriguez MD [address] [place] [address] Health Maintenance Due Date Last Done Comments [...] filedocumented as of this encounter Care Teams Shipping/Receiving Clerk Relationship Specialty Start Date End Date Macho Mckay PA-C [address] [address] [place] [address] PCP - General Physician Mineral Industry Teacher 04/30/23 documented as of this encounter
--- NOTE | 2023-12-26 14:58 | Emergency Department Note ---
ED Provider Note History of Present Illness Chief Complaint: Hip Pain Stated Complaint: RIGHT HIP/BACK PAIN - REF BY JAZZMINE Time Seen by Provider: 12/26/23 14:53 This is a 28-year-old male accompanied by his mother who presents the emergency department with pain located above his right buttock, right hip, and right leg. He could not tolerate the pain so decided to come to the emergency department. Patient has been dealing with similar but progressive symptoms over the past 8 months. Has seen multiple providers including a chiropractor and has been on 7- 8 courses of steroids. 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 Worst of the canal narrowing at L3- L4 where it is moderate to severe. Severe right foraminal narrowing at L4-L5. Patient had a steroid injection done under fluoroscopy 3 weeks ago through pain management. He states that he did receive some relief initially after this injection however over the past few days the pain has become much more severe and now he is having pain radiating all the way down his leg. He saw pain management yesterday who put him on another round of steroids, prescribed him gabapentin, and referred him to orthospine. He has an appointment with Dr. Medrano on 01/14/2024 however he does not feel that he can wait that long. Patient denies any numbness or tingling in his groin, but he does endorse some tingling in his toes intermittently. Sometimes he will urinate and then lay back down and feel he has to urinate again. Not incontinent of bowel or bladder. Sometimes when he is walking he feels like his leg is going to give out which he attributes to the pain. He is able to move all of his toes on both sides. Denies any abdominal pain or dysuria. No fevers or chills. No IV drug use. Home Medications Medication Instructions Recorded Confirmed Type cyclobenzaprine 10 mg tablet 10 mg PO TID PRN MUSCLE SPASMS 12/26/23 12/26/23 History dextroamphetamine-amphetamine 20 0 mg PO DAILY 12/26/23 12/26/23 History mg tablet gabapentin 300 mg capsule 300 mg PO DIRECTED 12/26/23 12/26/23 History magnesium oxide 420 mg tablet 840 mg PO DAILY 12/26/23 12/26/23 History prednisone 50 mg tablet 50 mg PO DAILY 12/26/23 12/26/23 History turmeric root extract 1,053 mg 1,076 mg PO DAILY 12/26/23 12/26/23 History tablet Allergies Allergy/AdvReac Type Severity Reaction Status Date / Time No Known Allergies Allergy Verified 12/26/23 17:00 Past Med/Surg History Medical History (Updated 12/26/23 @ 22:32 by CAMILA Gallo) Tobacco abuse ADHD Surgical History (Updated 12/26/23 @ 18:30 by Lila Delgado PA-C) No pertinent past surgical history Family History (Updated 12/26/23 @ 18:31 by Lila Delgado PA-C) Father Osteoarthritis Social History (Updated 12/26/23 @ 18:31 by Lila Delgado PA-C) Smoking Status: Never smoker Tobacco Type: Smokeless Tobacco (Dip or Chew) Cigarettes Per Day: 1 can/day; Do You Dip or Chew Tobacco: Yes (snuff 1 can per day); Hx Alcohol Use: Yes Alcohol type: beer Alcohol Intake Frequency: Monthly or Less Hx Substance Use: No Preferred Language: Georgian Communication Ability: Effective Resource Specialist Required: No Beliefs That Will Affect Care: None Current Living Situation: Significant Other Current Living Situation Comment: with girlfriendPhyllis Feels Safe at Home: Yes Safety Concerns: Feels Safe At This Time Assistive Devices: None Physical Exam Vital Signs Vital Signs - 24 hr 12/26/23 14:29 12/26/23 15:46 12/26/23 15:47 Temperature 98.4 F Temperature Source Temporal Artery Scan Pulse Rate 83 Pulse Rate [Right Finger] 75 Pulse Rate from SpO2 Sensor Respiratory Rate 18 20 Respiratory Effort / Characteristics Non-Labored Spontaneous Respiratory Depth Normal Normal Respiratory Pattern Regular Blood Pressure 155/99 H 142/81 H Blood Pressure [Left Arm] 142/81 H Blood Pressure Mean 117 101 Blood Pressure Mean [Left Arm] 101 Blood Pressure Position Sitting Pulse Oximetry 98 97 Oxygen Delivery Method Room Air Room Air Sepsis Recent Fever Within 48 Hours No Sepsis New/Unexplained Change in Mental Status N/A Sepsis Action Taken by Nursing No Action Required 12/26/23 15:47 12/26/23 15:47 12/26/23 15:50 Temperature Temperature Source Pulse Rate 71 75 70 Pulse Rate [Right Finger] Pulse Rate from SpO2 Sensor 75 72 Respiratory Rate 20 19 18 Respiratory Effort / Characteristics Respiratory Depth Respiratory Pattern Blood Pressure Blood Pressure [Left Arm] Blood Pressure Mean Blood Pressure Mean [Left Arm] Blood Pressure Position Pulse Oximetry 97 97 96 Oxygen Delivery Method Room Air Sepsis Recent Fever Within 48 Hours Sepsis New/Unexplained Change in Mental Status Sepsis Action Taken by Nursing 12/26/23 16:00 12/26/23 16:00 12/26/23 16:10 Temperature Temperature Source Pulse Rate 72 72 Pulse Rate [Right Finger] Pulse Rate from SpO2 Sensor 69 70 Respiratory Rate 22 23 Respiratory Effort / Characteristics Respiratory Depth Respiratory Pattern Blood Pressure 130/72 Blood Pressure [Left Arm] Blood Pressure Mean 85 Blood Pressure Mean [Left Arm] Blood Pressure Position Pulse Oximetry 96 96 Oxygen Delivery Method Sepsis Recent Fever Within 48 Hours Sepsis New/Unexplained Change in Mental Status Sepsis Action Taken by Nursing 12/26/23 16:20 12/26/23 16:30 12/26/23 16:30 Temperature Temperature Source Pulse Rate 71 86 Pulse Rate [Right Finger] Pulse Rate from SpO2 Sensor 72 85 Respiratory Rate 21 20 Respiratory Effort / Characteristics Respiratory Depth Respiratory Pattern Blood Pressure 129/79 Blood Pressure [Left Arm] Blood Pressure Mean 94 Blood Pressure Mean [Left Arm] Blood Pressure Position Pulse Oximetry 98 98 Oxygen Delivery Method Sepsis Recent Fever Within 48 Hours Sepsis New/Unexplained Change in Mental Status Sepsis Action Taken by Nursing 12/26/23 16:40 12/26/23 16:50 12/26/23 17:00 Temperature Temperature Source Pulse Rate 69 71 69 Pulse Rate [Right Finger] Pulse Rate from SpO2 Sensor 67 69 71 Respiratory Rate 18 20 18 Respiratory Effort / Characteristics Respiratory Depth Respiratory Pattern Blood Pressure Blood Pressure [Left Arm] Blood Pressure Mean Blood Pressure Mean [Left Arm] Blood Pressure Position Pulse Oximetry 98 97 100 Oxygen Delivery Method Sepsis Recent Fever Within 48 Hours Sepsis New/Unexplained Change in Mental Status Sepsis Action Taken by Nursing 12/26/23 17:01 12/26/23 17:01 12/26/23 17:10 Temperature Temperature Source Pulse Rate 65 64 Pulse Rate [Right Finger] Pulse Rate from SpO2 Sensor 64 64 Respiratory Rate 16 20 Respiratory Effort / Characteristics Respiratory Depth Respiratory Pattern Blood Pressure 134/76 Blood Pressure [Left Arm] Blood Pressure Mean 86 Blood Pressure Mean [Left Arm] Blood Pressure Position Pulse Oximetry 98 98 Oxygen Delivery Method Sepsis Recent Fever Within 48 Hours Sepsis New/Unexplained Change in Mental Status Sepsis Action Taken by Nursing 12/26/23 17:20 12/26/23 17:30 12/26/23 17:40 Temperature Temperature Source Pulse Rate 63 63 75 Pulse Rate [Right Finger] Pulse Rate from SpO2 Sensor 64 63 73 Respiratory Rate 24 20 19 Respiratory Effort / Characteristics Respiratory Depth Respiratory Pattern Blood Pressure Blood Pressure [Left Arm] Blood Pressure Mean Blood Pressure Mean [Left Arm] Blood Pressure Position Pulse Oximetry 99 98 98 Oxygen Delivery Method Sepsis Recent Fever Within 48 Hours Sepsis New/Unexplained Change in Mental Status Sepsis Action Taken by Nursing 12/26/23 17:50 Temperature Temperature Source Pulse Rate 72 Pulse Rate [Right Finger] Pulse Rate from SpO2 Sensor 76 Respiratory Rate 17 Respiratory Effort / Characteristics Respiratory Depth Respiratory Pattern Blood Pressure Blood Pressure [Left Arm] Blood Pressure Mean Blood Pressure Mean [Left Arm] Blood Pressure Position Pulse Oximetry 96 Oxygen Delivery Method Sepsis Recent Fever Within 48 Hours Sepsis New/Unexplained Change in Mental Status Sepsis Action Taken by Nursing CONSTITUTIONAL: Well developed, well nourished, uncomfortable appearing laying prone, appears to be in pain with any changes in position. NECK: Full active range of motion. RESPIRATORY: Breathing unlabored and symmetric. Lungs clear to auscultation bilaterally. No wheeze, rales, or rhonchi. CARDIOVASCULAR: Regular rate and rhythm. No murmurs, rubs, or gallops. DP pulses 2+ bilaterally. ABDOMEN: Normal bowel sounds. Soft, nontender, no peritonitis. No masses. MUSCULOSKELETAL: Back: There is no midline thoracic lumbar or sacral spinous process tenderness. There is some tenderness over the right superior gluteal region and right lateral hip region. Patient with severe pain when attempting to perform straight leg raise on the right side. He has a positive straight leg raise on the right. No pain in the left leg with straight raise or with straight leg raise test. SKIN: [place], warm, dry. NEUROLOGIC: Awake, alert, oriented. Decreased strength with plantarflexion and dorsiflexion on the right. Decreased sensation to light touch in L3-S1 distribution. PSYCHIATRIC: Appropriate. Normal affect. Course Administered Medications Cyclobenzaprine HCl (Cyclobenzaprine Hcl 10 Mg Tab) 10 mg PO TID NANY Stop: 01/25/24 20:59 Last Admin: 12/26/23 21:13 Dose: 10 mg Documented By: JOZEF Gabapentin (Gabapentin 300 Mg Cap) 300 mg PO HS [facility] Stop: 01/25/24 20:59 Last Admin: 12/26/23 21:18 Dose: 300 mg Documented By: JOZEF Hydromorphone HCl (Hydromorphone Inj 0.5 Mg/0.5 Ml Syr) 0.5 mg IV Q6H PRN PRN Reason: Pain Stop: 01/09/24 21:10 Last Admin: 12/26/23 22:05 Dose: 0.5 mg Documented By: JOZEF Dexamethasone 10 mg/ Syringe 2.5 mls @ 1 mls/min IV Q8H NANY Stop: 01/25/24 21:29 Last Admin: 12/26/23 21:17 Dose: 1 mls/min Documented By: JOZEF Melatonin (Melatonin 3 Mg Tab) 6 mg PO HS PRN PRN Reason: Sleep Stop: 01/25/24 21:09 Last Admin: 12/26/23 21:19 Dose: 6 mg Documented By: JOZEF Miscellaneous (Remove Lidoderm Patch) 1 each N/A DAILY@2100 [facility] Stop: 01/25/24 20:59 Last Admin: 12/26/23 21:18 Dose: 1 each Documented By: JOZEF Starkaneous (Remove Nicoderm Patch) 1 each N/A DAILY@2058 [facility] Stop: 01/25/24 20:58 Last Admin: 12/26/23 21:08 Dose: Not Given Documented By: JOZEF Nicotine (Nicotine 14 Mg/24 Hr Patch) 14 mg TD HS [facility] Stop: 01/25/24 20:59 Last Admin: 12/26/23 21:17 Dose: 14 mg Documented By: JOZEF Oxycodone HCl (Oxycodone Hcl Ir 5 Mg Tab (Immediate Release)) 5 - 10 mg PO QID PRN PRN Reason: Pain Stop: 01/09/24 21:07 Last Admin: 12/26/23 21:12 Dose: 10 mg Documented By: JOZEF Discontinued Medications Diazepam (Diazepam 2 Mg Tablet) 2 mg PO NOW STA Stop: 12/26/23 15:30 Last Admin: 12/26/23 15:38 Dose: 2 mg Documented By: RICHARD Ketorolac Tromethamine (Ketorolac Tromethamine 15 Mg/Ml Vial) 15 mg IV NOW ONE Stop: 12/26/23 21:09 Last Admin: 12/26/23 21:12 Dose: 15 mg Documented By: JOZEF Lidocaine (Lidocaine 5% 1 Patch) 1 patch TD NOW STA Stop: 12/26/23 15:30 Last Admin: 12/26/23 15:39 Dose: 1 patch Documented By: RICHARD Morphine Sulfate (Morphine Sulfate 4 Mg/Ml 1 Ml Carp\Vial) 4 mg IV NOW STA Stop: 12/26/23 15:30 Last Admin: 12/26/23 15:43 Dose: 4 mg Documented By: RICHARD Morphine Sulfate (Morphine Sulfate 4 Mg/Ml 1 Ml Carp\Vial) 4 mg IV NOW STA Stop: 12/26/23 18:47 Last Admin: 12/26/23 18:56 Dose: 4 mg Documented By: GABRIELA Medical Decision Making Differential Diagnosis Disc bulge, disc herniation, radicular pain, cauda equina syndrome, transverse myelitis, spinal epidural abscess, myofascial pain, sacroiliitis, sciatica, fracture, dislocation, subluxation, nerve impingement, among other pathology Medical Records Attestation: I reviewed the patient's medical records. (Reviewed MRI results from 10/27/2023 through [facility] Laboratory Data 12/26/23 15:45 12/26/23 15:45 Lab Results 12/26/23 Range/Units 15:45 WBC 11.77 H (4.8-10.8) K/ul RBC 5.31 (4.70-6.10) M/uL Hgb 15.3 (14.0-18.0) g/dl Hct 45.8 (42.0-52.0) % MCV 86.3 (80.0-100.0) fL MCH 28.8 (25.0-34.0) pg MCHC 33.4 (32.0-36.0) g/dL RDW Std Deviation 41.4 (36.4-46.3) fL RDW Coeff of Sandra 13.4 (11.5-14.5) % Plt Count 258 (130-400) K/uL MPV 10.9 (9.4-12.4) fL Immature Gran % (Auto) 0.4 % Neut % (Auto) 76.2 % Lymph % (Auto) 15.1 % Cecil % (Auto) 7.8 % Eos % (Auto) 0.4 % Baso % (Auto) 0.1 % Neut # (Auto) 8.96 H (1.40-6.50) K/uL Lymph # (Auto) 1.78 (1.20-3.40) K/uL Cecil # (Auto) 0.92 H (0.11-0.59) K/uL Eos # (Auto) 0.05 (0.00-0.50) K/uL Baso # (Auto) 0.01 (0.00-0.20) K/uL Immature Gran # (Auto) 0.05 (0.01-0.20) K/uL Sodium 142 (136-145) mmol/L Potassium 3.7 (3.5-5.1) mmol/L Chloride 104 (98-107) mmol/L Carbon Dioxide 30 (21-32) mmol/L Anion Gap 8 (3-11) BUN 12 (6-23) mg/dl Creatinine 0.91 (0.6-1.4) mg/dl Est Cr Clr Drug Dosing Not Reportable Est GFR ( Amer) 132.5 ml/min Est GFR (Non-Af Amer) 114.3 ml/min BUN/Creatinine Ratio 13.2 (10-20) Glucose 143 H (70-99(Fasting)) mg/dl Calcium 9.8 (8.6-10.3) mg/dl Total Bilirubin 0.3 (0.2-1.0) mg/dl AST 22 (13-39) U/L ALT 53 H (7-52) U/L Alkaline Phosphatase 46 (34-104) U/L Total Protein 7.7 (6.0-8.3) gm/dl Albumin 5.1 H (3.4-5.0) gm/dl Globulin 2.6 (2.5-4.0) gm/dl Albumin/Globulin Ratio 2.0 (0.9-2) MDM Narrative 28-year-old male presents to the emergency department with progressively worsening right low back pain radiating into the hip and leg over the past 8 months. Has been on multiple rounds of steroids for the symptoms. Has recently began following with pain management who referred him to orthospine based on MRI from 2 months ago as described above. Experienced some temporary relief following a steroid injection however pain has now returned and is worse than it has ever been. He is unable to work now due to the pain. See above for further details. Patient does appear to be very uncomfortable initially. He has some tenderness over the right buttock and lateral hip region. Positive straight leg raise test on the right. Decreased strength with dorsiflexion and plantarflexion of the ankle. Sensory deficits to light touch in L3 S1 distribution. IV was inserted and labs were obtained. Patient was given IV morphine, Lidoderm patch, and p.o. Valium. This was therapeutic. Postvoid residual is negative for any urinary retention. Labs demonstrated minimal leukocytosis at 11.77 likely secondary to pain. Low suspicion for any infectious process. Electrolytes normal. No transaminitis. Renal function normal. Glucose minimally elevated at 143. Patient required an additional dose of morphine as his pain was beginning to return. I reviewed the case with ED attending Dr. Lora. We decided to recommend admission to the hospital for pain control and orthospine consult first thing after the weekend when orthospine is on-call at this facility. I reviewed this with the patient and he was agreeable. Case was reviewed with Lila Delgado PA-C working with Dr. Gutierrez with [facility] hospitalist group who agrees to admit the patient. Impression Lumbar back pain with radiculopathy affecting right lower extremity Discharge Plan Visit Data Chief Complaint: Hip Pain Stated Complaint: RIGHT HIP/BACK PAIN - REF BY [facility] ED Provider: Luis Lora ED Midlevel Provider: Avinash Tee Discharge Problem: Lumbar back pain with radiculopathy affecting right lower extremity Patient Disposition: Admitted As Inpatient Discharge Instructions Interventions: ED Discharge Assessment Last Done: 12/26/23 20:50
[2023-12-26] MEDS: diazePAM 2 MG TABLET PO STA (15:38)
[2023-12-26] MEDS: LIDOCAINE 5% 1 PATCH TD STA (15:39)
[2023-12-26] MEDS: MoRPHine SULFATE 4 MG/ML 1 ML CARP\\VIAL IV STA ×2 (15:43→18:56)
[2023-12-26 16:08] LABS: Basophils # (auto) 0.01 K/uL (0.00-0.20); Basophils % (auto) 0.1 %; Eosinophils # (auto) 0.05 K/uL (0.00-0.50); Eosinophils % (auto) 0.4 %; Hematocrit (blood only) 45.8 % (42.0-52.0); Hemoglobin 15.3 g/dl (14.0-18.0); Immature Granulocytes # (auto) 0.05 K/uL (0.01-0.20); Immature Granulocytes % (auto) 0.4 %; Lymphocytes # (auto) 1.78 K/uL (1.20-3.40); Lymphocytes % (auto) 15.1 %; Mean Corpuscular Hemoglobin 28.8 pg (25.0-34.0); Mean Corpuscular Hgb Conc 33.4 g/dL (32.0-36.0); Mean Corpuscular Volume 86.3 fL (80.0-100.0); Mean Platelet Volume 10.9 fL (9.4-12.4); Monocytes # (auto) 0.92 K/uL (0.11-0.59); Monocytes % (auto) 7.8 %; Neutrophils # (auto) 8.96 K/uL (1.40-6.50); Neutrophils % (auto) 76.2 %; Platelet Count 258 K/uL (130-400); RDW Coefficient of Variation 13.4 % (11.5-14.5); RDW Standard Deviation 41.4 fL (36.4-46.3); Red Blood Count 5.31 M/uL (4.70-6.10); White Blood Count 11.77 K/ul (4.8-10.8)
[2023-12-26 16:23] LABS: Alanine Aminotransferase 53 U/L (7-52); Albumin Level 5.1 gm/dl (3.4-5.0); Alkaline Phosphatase 46 U/L (34-104); Anion Gap 8 (3-11); Aspartate Aminotransferase 22 U/L (13-39); BUN Creatinine Ratio 13.2 (10-20); Bilirubin,Total 0.3 mg/dl (0.2-1.0); Blood Urea Nitrogen 12 mg/dl (6-23); Calcium 9.8 mg/dl (8.6-10.3); Carbon Dioxide 30 mmol/L (21-32); Chloride 104 mmol/L (98-107); Est GFR (African American) 132.5 ml/min; Est GFR (Non-African American) 114.3 ml/min; Globulin 2.6 gm/dl (2.5-4.0); Glucose 143 mg/dl (70-99(Fasting)); Potassium 3.7 mmol/L (3.5-5.1); Sodium 142 mmol/L (136-145); Total Protein 7.7 gm/dl (6.0-8.3)
--- NOTE | 2023-12-26 18:40 | History & Physical Report ---
Date of Service December 26, 2023 Assessment & Plan (1) Acute exacerbation of chronic low back pain: (2) Lumbar back pain with radiculopathy affecting right lower extremity: (3) Tobacco abuse: (4) ADHD: Plan This is a 28-year-old male who has significant past medical history of ADHD and tobacco abuse who presents to ED secondary to worsening back pain with radiculopathy. Acute on chronic low back pain Lumbar back pain with radiculopathy affecting right lower extremity Admit to medical Consult Dr. 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 Boo Tobacco abuse Encourage cessation Nicotine patch ADHD Adderall DVT prophylaxis: SCDs in event of lumbar procedure Full code PCP: Macho Mckay @ [facility] Dispo: admit to medical Pt was seen and examined in collaboration with Dr. Gutierrez, please see addendum A total of 60 minutes was spent coordinating, documenting, and providing care for this patient excluding time spent in the performance of separately billed services. This included personally viewing all current laboratories and imaging studies, medication reconciliation, outpatient chart review, and discussion with specialists. History of Present Illness Chief Complaint: Back Pain Primary Care Provider: Tristan Mckay PA-C This is a 28-year-old male who has significant past medical history of ADHD and tobacco abuse who presents to ED secondary to worsening back pain with radiculopathy. Symptoms have been ongoing for the last 8 months. He has been following with [facility] pain management. He denies any significant trauma or injury. He states approximately 8 months ago he woke up with severe stabbing pain to his right low back. 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 Pain is in his right low back and radiates down his right leg with numbness and tingling. He states pain is mostly located on the outside of his leg but also feels in the inside as well. He further complains of weakness. He denies any loss of bowel or bladder. His pain is made worse with lying and improved with standing. He denies any recent illness. He is otherwise healthy. He has been on several rounds of prednisone without significant relief. 3 weeks ago he did have a corticosteroid injection. This did provide about 80% relief for 2 weeks and then his pain returned. They did set him up with orthopedic spine at the end of December, but due to pain being too severe he opted to present to ED. 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 The worst level of canal narrowing is at L3-L4 where it is moderate to severe. Allergies Allergy/AdvReac Type Severity Reaction Status Date / Time No Known Allergies Allergy Verified 12/26/23 17:00 Home Medications Medication Instructions Recorded Confirmed Type cyclobenzaprine 10 mg tablet 10 mg PO TID PRN MUSCLE SPASMS 12/26/23 12/26/23 History dextroamphetamine-amphetamine 20 0 mg PO DAILY 12/26/23 12/26/23 History mg tablet gabapentin 300 mg capsule 300 mg PO DIRECTED 12/26/23 12/26/23 History magnesium oxide 420 mg tablet 840 mg PO DAILY 12/26/23 12/26/23 History prednisone 50 mg tablet 50 mg PO DAILY 12/26/23 12/26/23 History turmeric root extract 1,053 mg 1,076 mg PO DAILY 12/26/23 12/26/23 History tablet Past Med/Surg History Medical History (Updated 12/26/23 @ 18:34 by Lila Delgado PA-C) Tobacco abuse ADHD Surgical History (Updated 12/26/23 @ 18:30 by Lila Delgado PA-C) No pertinent past surgical history Family History (Updated 12/26/23 @ 18:31 by Lila Delgado PA-C) Father Osteoarthritis Social History (Updated 12/26/23 @ 18:31 by Lila Delgado PA-C) Smoking Status: Never smoker Tobacco Type: Smokeless Tobacco (Dip or Chew) Cigarettes Per Day: 1 can/day; Hx Alcohol Use: Yes Alcohol Intake Frequency: Monthly or Less Hx Substance Use: No Preferred Language: Albanian Communication Ability: Effective Feels Safe at Home: Yes Review of Systems Review of Systems: All systems reviewed & are unremarkable except as noted in HPI & below Physical Exam Physical Exam: Constitutional: WD/WN, vitals as above, NAD, standing at bedside due to pain, pleasant, conversing easily Head: Normocephalic, Atraumatic Eyes: pupils equal, conjunctivae normal, anicteric sclerae ENMT: external ear and nose normal, oropharynx normal Neck: trachea midline, no thyromegaly normal visual inspection Respiratory: normal respiratory effort, lungs clear to auscultation, no wheeze, rales, rhonchi. Normal insp/exp effort, no accessory muscle use Cardiovascular: RRR, no murmur, no edema Vessels: no JVD or carotid bruit Chest: normal inspection of chest Abdomen: normal bowel sounds, soft, nontender, no hepatosplenomegaly Musculoskeletal: unable to accurately assess strength due to patient unable to sit down b/c of pain Skin: no rashes, warm and dry normal turgor Neurologic: no face palsy, no dysarthria CN's II-XI intact bilaterally and moves all extremities Psychiatric: A+Ox3, euthymic affect : deferred Results & Data Results & Data Vital Signs (Past 12 Hours) Vital Signs Temp Pulse Pulse Resp BP BP Pulse Ox 12/26/23 15:47 71 20 97 12/26/23 15:47 75 20 142/81 H 97 12/26/23 14:29 36.9 C 83 18 155/99 H 98 O2 Del Method 12/26/23 15:47 Room Air 12/26/23 15:47 Room Air 12/26/23 14:29 Room Air Medications Administered Medication List Discontinued Medications Diazepam (Diazepam 2 Mg Tablet) 2 mg PO NOW STA Stop: 12/26/23 15:30 Last Admin: 12/26/23 15:38 Dose: 2 mg Documented By: RICHARD Lidocaine (Lidocaine 5% 1 Patch) 1 patch TD NOW STA Stop: 12/26/23 15:30 Last Admin: 12/26/23 15:39 Dose: 1 patch Documented By: RICHARD Morphine Sulfate (Morphine Sulfate 4 Mg/Ml 1 Ml Carp\Vial) 4 mg IV NOW STA Stop: 12/26/23 15:30 Last Admin: 12/26/23 15:43 Dose: 4 mg Documented By: RICHARD COVID-19 Results Results COVID-19 Adm Lab Results: RBC 5.31 M/uL (4.70-6.10) 12/26/23 WBC 11.77 K/ul (4.8-10.8) H 12/26/23 Hgb 15.3 g/dl (14.0-18.0) 12/26/23 Hct 45.8 % (42.0-52.0) 12/26/23 Plt Count 258 K/uL (130-400) 12/26/23 Neutrophils (%) (Auto) 76.2 % 12/26/23 Lymphocytes (%) (Auto) 15.1 % 12/26/23 Monocytes # (Auto) 0.92 K/uL (0.11-0.59) H 12/26/23 Eosinophils # (Auto) 0.05 K/uL (0.00-0.50) 12/26/23 Immature Granulocyte % (Auto) 0.4 % 12/26/23 Neutrophils # (Auto) 8.96 K/uL (1.40-6.50) H 12/26/23 Lymphocytes # (Auto) 1.78 K/uL (1.20-3.40) 12/26/23 Monocytes # (Auto) 0.92 K/uL (0.11-0.59) H 12/26/23 Eosinophils # (Auto) 0.05 K/uL (0.00-0.50) 12/26/23 Basophils # (Auto) 0.01 K/uL (0.00-0.20) 12/26/23 Immature Granulocyte # (Auto) 0.05 K/uL (0.01-0.20) 4 Na 142 mmol/L (136-145) 12/26/23 K 3.7 mmol/L (3.5-5.1) 12/26/23 Cl 104 mmol/L (98-107) 12/26/23 CO2 30 mmol/L (21-32) 12/26/23 Anion Gap 8 (3-11) 12/26/23 BUN 12 mg/dl (6-23) 12/26/23 Creatinine 0.91 mg/dl (0.6-1.4) 12/26/23 BUN/Creatinine Ratio 13.2 (10-20) 12/26/23 Glucose Level 143 mg/dl (70-99(Fasting)) H 12/26/23 Ca 9.8 mg/dl (8.6-10.3) 12/26/23 Total Bilirubin 0.3 mg/dl (0.2-1.0) 12/26/23 AST/SGOT 22 U/L (13-39) 12/26/23 ALT/SGPT 53 U/L (7-52) H 12/26/23 Alkaline Phosphatase 46 U/L (34-104) 12/26/23 Total Protein 7.7 gm/dl (6.0-8.3) 12/26/23 Albumin 5.1 gm/dl (3.4-5.0) H 12/26/23 Globulin 2.6 gm/dl (2.5-4.0) 12/26/23 Albumin/Globulin Ratio 2.0 (0.9-2) 12/26/23 Code Status & VTE Plan Code Status FULL CODE VTE Prophylaxis Plan VTE Prophylaxis will be ordered: Yes Supervising Physician Co-Signing Physician Notes Patient was seen and examined with Lila ORTIZ at bedside. Chart reviewed. Case discussed with Lila ORTIZ and agree with the documentation above. In summary, this is a 28 year old male who presented with intractable LBP with right sciatica, now with some weakness and tingling but no cauda equina symptoms. Ongoing pain for past 8 months, no obvious preceding trauma. Follows with [facility] management as OP. S/p multiple courses of prednisone and s/p recent epidural injection. Patient is to see orthopedic spine with [facility] at end of December but came here due to intractable pain. 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 The worst level of canal narrowing is at L3-L4 where it is moderate to severe. Will admit for multimodal pain management with iv steroids, tylenol, lidoderm patch, muscle relaxant, prn opiates. Repeat MRI L spine and ortho spine evaluation. Rest as per the note above On exam- General: Standing on the floor (his comfortable position), not in distress, on room air HEENT: EOMI, GABRIELLA, MMM Chest: Clear breath sounds bilaterally, no wheezes or crackles CVS: Regular rate and rhythm, normal heart sounds, no murmur Abdomen: Soft, non tender, not distended, normal bowel sounds Neuro: Awake, alert, oriented, conversing well, non focal Extremities: No cyanosis, clubbing or edema
[2023-12-26] MEDS ORDERED: ALUMINUM/MAGNESIUM SUSP 30 ML UDC PO PRN (21:00)
[2023-12-26] MEDS ORDERED: DEXAMETHASONE SOD INJ 4 MG/ML VIAL IV SCH (21:00)
[2023-12-26] MEDS ORDERED: MoRPHine SULFATE 4 MG/ML 1 ML CARP\\VIAL IV PRN (21:00)
[2023-12-26] MEDS ORDERED: ONDANSETRON INJ 2 MG/ML 2 ML VIAL IV PRN (21:00)
[2023-12-26] MEDS ORDERED: oxyCODONE/ACETAMINOPHEN 5mg/325mg TAB PO PRN (21:00)
[2023-12-26] MEDS: oxyCODONE HCL IR 5 MG TAB (IMMEDIATE RELEASE) PO PRN (21:12)
[2023-12-26] MEDS: KETOROLAC TROMETHAMINE 15 MG/ML VIAL IV ONE (21:12)
[2023-12-26] MEDS: CYCLOBENZAPRINE HCL 10 MG TAB PO SCH (21:13)
[2023-12-26] MEDS: dexAMETHasone 10 MG in SYRINGE 0 ML IV SCH (21:17)
[2023-12-26] MEDS: NICOTINE 14 MG/24 HR PATCH TD SCH (21:17)
[2023-12-26] MEDS: GABAPENTIN 300 MG CAP PO SCH (21:18)
[2023-12-26] MEDS: MELATONIN 3 MG TAB PO PRN (21:19)
[2023-12-26] MEDS: HYDROmorphone INJ 0.5 MG/0.5 ML SYR IV PRN (22:05)
[2023-12-27] MEDS: KETOROLAC TROMETHAMINE 15 MG/ML VIAL IV ONE ×2 (00:24→20:39)
[2023-12-27] MEDS: SODIUM CHLOR 0.45% + 20MEQ KCL 20 MEQ/1,000 ML BAG IV ONE (05:11)
[2023-12-27] MEDS: KETOROLAC TROMETHAMINE 15 MG/ML VIAL IV STA (05:11)
[2023-12-27 06:02] LABS: Basophils # (auto) 0.01 K/uL (0.00-0.20); Basophils % (auto) 0.1 %; Hematocrit (blood only) 40.4 % (42.0-52.0); Hemoglobin 13.8 g/dl (14.0-18.0); Immature Granulocytes # (auto) 0.03 K/uL (0.01-0.20); Immature Granulocytes % (auto) 0.4 %; Lymphocytes # (auto) 0.88 K/uL (1.20-3.40); Lymphocytes % (auto) 10.3 %; Mean Corpuscular Hemoglobin 28.9 pg (25.0-34.0); Mean Corpuscular Hgb Conc 34.2 g/dL (32.0-36.0); Mean Corpuscular Volume 84.5 fL (80.0-100.0); Monocytes # (auto) 0.11 K/uL (0.11-0.59); Monocytes % (auto) 1.3 %; Neutrophils % (auto) 87.9 %; Platelet Count 204 K/uL (130-400); RDW Coefficient of Variation 13.3 % (11.5-14.5); RDW Standard Deviation 41.3 fL (36.4-46.3); Red Blood Count 4.78 M/uL (4.70-6.10); White Blood Count 8.53 K/ul (4.8-10.8)
[2023-12-27 06:39] LABS: Alanine Aminotransferase 45 U/L (7-52); Albumin Globulin Ratio 2.2 (0.9-2); Albumin Level 4.6 gm/dl (3.4-5.0); Alkaline Phosphatase 36 U/L (34-104); Anion Gap 7 (3-11); BUN Creatinine Ratio 23.8 (10-20); Bilirubin,Total 0.4 mg/dl (0.2-1.0); Blood Urea Nitrogen 19 mg/dl (6-23); Calcium 9.4 mg/dl (8.6-10.3); Carbon Dioxide 27 mmol/L (21-32); Chloride 107 mmol/L (98-107); Creatinine Clr Calc Pharmacy 179.7 ml/min; Est GFR (African American) 140.9 ml/min; Est GFR (Non-African American) 121.6 ml/min; Globulin 2.1 gm/dl (2.5-4.0); Glucose 170 mg/dl (70-99(Fasting)); Magnesium 2.1 mg/dl (1.7-2.4); Sodium 141 mmol/L (136-145); Total Protein 6.7 gm/dl (6.0-8.3)
[2023-12-27] MEDS: LIDOCAINE 5% 1 PATCH TD SCH (07:14)
[2023-12-27 07:15] LABS: Potassium 4.5 mmol/L (3.5-5.1)
[2023-12-27] MEDS: SENNA 8.6 MG TAB PO SCH (07:15)
[2023-12-27] MEDS: DEXTROAMPHETAMINE/AMPHETAMINE IR 20 MG TAB PO SCH (08:06)
[2023-12-27] MEDS: HYDROmorphone INJ 0.5 MG/0.5 ML SYR IV PRN (08:43)
--- NOTE | 2023-12-27 08:45 | XRay Report ---
XR orbits for MRI CLINICAL HISTORY: Screening for foreign body for MRI TECHNIQUE: AP and lateral views of the orbits were submitted for interpretation. Comparison: None available at the time of this dictation. FINDINGS/IMPRESSION: There are no radiopaque metallic foreign bodies apart from dental amalgam. The osseous structures are unremarkable. Patient is cleared for MRI. ACT 112: Negative or not required by law. Electronically signed by: Tab Steele M.D. 12/27/2023 8:43 AM
[2023-12-27] MEDS: ACETAMINOPHEN 325 MG TAB PO PRN (09:42)
[2023-12-27] MEDS: oxyCODONE HCL IR 5 MG TAB (IMMEDIATE RELEASE) PO PRN (10:05)
--- NOTE | 2023-12-27 10:42 | Orthopedic Consultation ---
Date of Consultation December 27, 2023 Assessment & Plan (1) Lumbar disc herniation with radiculopathy: MRI lumbar spine available for review[facility] Demonstrates evidence of multilevel spondylosis. There is a large broad-based disc herniation L3-L4 with a fragment migrating caudally on the right. There is severe spinal the L3-L4 level. L4-5 L5-S1 demonstrate broad based central disc protrusion with Modic changes. Plan at this time the majority of symptom complex is the L3-L4 stenosis and disc herniation which is demonstrating evidence of compression of the traversing L4 nerve root. This is consistent with his pain patterns. At this point he is failed extensive course of nonoperative care and is interested in surgical invention. I would direct my attention to the L3-L4 level specifically. It would require a wide decompression discectomy necessitating fusion. Risk benefits pros cons alternatives in detail. Risk include but not limited to anesthesia blindness stroke paralysis nerve damage blood loss required transfusion infection requiring operative operation. I have acknowledged the disease processes at L4-L5 L5-S1 hopefully we can manage these with further injections, physical therapy or perhaps the Intracept procedure. Patient stands and agrees. Will try to have the surgeries performed soon as possible. History of Present Illness Reason for Consultation: Back and right leg pain Attending Physician: Cesar Correa MD History of Present Illness This is a 28-year-old male who presents yesterday with severe back and right leg pain. Describes a pain involving the right buttock and the entire thigh extending below the knee sometimes to his foot. The left lower extremity asymptomatic. He says he had symptoms for over a year with a marked exacerbation yesterday. He did undergo 1 lumbar epidural injection which she states provided approximately 3 weeks of relief. 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 He has been unable to do so and had to cancel work on several occasions secondary to his pain. At this point is most comfortable standing putting his weight on his left lower extremity. Sitting is markedly uncomfortable. He is getting spasms down his right leg when lying supine. He describes marked strength deficits with ascending descending steps involving the right lower extremity. Allergies Allergy/AdvReac Type Severity Reaction Status Date / Time No Known Allergies Allergy Verified 12/26/23 17:00 Home Medications Medication Instructions Recorded Confirmed Type cyclobenzaprine 10 mg tablet 10 mg PO TID PRN MUSCLE SPASMS 12/26/23 12/26/23 History dextroamphetamine-amphetamine 20 0 mg PO DAILY 12/26/23 12/26/23 History mg tablet gabapentin 300 mg capsule 300 mg PO DIRECTED 12/26/23 12/26/23 History magnesium oxide 420 mg tablet 840 mg PO DAILY 12/26/23 12/26/23 History prednisone 50 mg tablet 50 mg PO DAILY 12/26/23 12/26/23 History turmeric root extract 1,053 mg 1,076 mg PO DAILY 12/26/23 12/26/23 History tablet Patient History Medical History (Updated 12/27/23 @ 10:39 by Gerardo Boo DO) Tobacco abuse ADHD Surgical History (Updated 12/26/23 @ 18:30 by Lila Delgado PA-C) No pertinent past surgical history Family History (Updated 12/26/23 @ 18:31 by Lila Delgado PA-C) Father Osteoarthritis Social History (Updated 12/26/23 @ 18:31 by Lila Delgado PA-C) Smoking Status: Never smoker Tobacco Type: Smokeless Tobacco (Dip or Chew) Cigarettes Per Day: 1 can/day; Do You Dip or Chew Tobacco: Yes (snuff 1 can per day); Hx Alcohol Use: Yes Alcohol type: beer Alcohol Intake Frequency: Monthly or Less Hx Substance Use: No Preferred Language: Northern Irish Communication Ability: Effective Telephone Repairer Required: No Beliefs That Will Affect Care: None Current Living Situation: Significant Other Current Living Situation Comment: with girlfriendPhyllis Feels Safe at Home: Yes Safety Concerns: Feels Safe At This Time Assistive Devices: None Physical Exam Physical Exam: On exam the patient is most comfortable standing. He leans on his left leg. I am able to have him stand on his toes and heels with some assistance. His def icits to sensory to the right thigh compared to the left. Quadriceps is 4/5 in left compared to 5 5 on the right. Is no axial back pain to palpation. No final skin markings. Results & Data Vital Signs (Past 12 Hours) Vital Signs Temp Pulse Resp BP Pulse Ox O2 Del Method 12/27/23 07:04 36.8 C 67 18 122/54 L 96 Room Air
--- NOTE | 2023-12-27 14:13 | Hospitalist Progress Note ---
Date of Service December 27, 2023 Assessment & Plan (1) Acute exacerbation of chronic low back pain: (2) Lumbar back pain with radiculopathy affecting right lower extremity: (3) Tobacco abuse: (4) ADHD: Plan Per admitting services with addendum: This is a 28-year-old male who has significant past medical history of ADHD and tobacco abuse who presents to ED secondary to worsening back pain with radiculopathy. Acute on chronic low back pain Lumbar back pain with radiculopathy affecting right lower extremity Admit to medical Consult Dr. 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 Boo 12/26 Pain improving. Yesterday but still significant Continue Decadron IV, gabapentin, Flexeril, as needed oxycodone and Dilaudid Evaluated by Dr. Boo, plan for surgical intervention tomorrow or Thursday No medical contraindications to proceed with planned surgery Will monitor very closely Tobacco abuse Encourage cessation Nicotine patch ADHD Adderall DVT prophylaxis: SCDs in event of lumbar procedure Full code PCP: Macho Mckay @ [facility] Dispo: Pending plan of care discussed with patient and his family at the bedside in detail and at length all questions answered They are understanding, agreeable, comfortable with the plan of care Admission and Anticipated Discharge Date Admission Date: December 26, 2023 Subjective Follow-up for intractable back pain, lumbar spine stenosis, etc. Resting in bed, sitting up, not in distress States pain is improving, currently 5 out of 10 compared to 9 out of 10 yesterday Ambulating okay with minimal pain on the right lower extremity No weakness or numbness no chest pain, dyspnea, palpitations, dizziness No other new symptoms Review of Systems Review of Systems: all noted and negative except for above Physical Exam Physical Exam: General- oriented x 3, not in distress, speaks in sentences with no effort or accessory muscle use Eyes- anicteric Neck- no JVD Lungs- clear breath sounds bilaterally, no crackles or wheezing Heart- normal rate, regular rhythm; no murmurs Abdomen- normal bowel sounds, nondistended, soft, no tenderness Extremities- no pretibial edema, no calf tenderness Neuro- alert, oriented x 3; no gross focal neurologic deficits Skin- warm & dry Results & Data Results & Data Vital Signs (Past 12 Hours) Vital Signs Temp Pulse Resp BP Pulse Ox O2 Del Method 12/27/23 07:04 36.8 C 67 18 122/54 L 96 Room Air all noted and reviewed including below
--- NOTE | 2023-12-27 20:05 | Magnetic Resonance Report ---
MR lumbar spine wo con CLINICAL HISTORY: Back pain with radiculopathy TECHNIQUE: Multiplanar sequences through the lumbar spine were obtained, without intravenous contrast . Comparison: None available at the time of this dictation. FINDINGS: The alignment is anatomical. L1-L2: No significant abnormality. L2-L3: No significant abnormality. L3-L4: Disc protrusion and extrusion is seen, right greater than left. There is severe canal stenosis , AP diameter 5 mm, and impingement upon the exiting nerve roots. L4-L5: Broad-based posterior disc bulge is seen. There is moderate left and severe right neural epi inal stenosis. L5-S1: Broad-based posterior disc bulge is seen with severe bilateral foraminal stenosis. The spinal ligaments are intact, without evidence of disruption or abnormal signal intensity. The spi nal cord is normal in signal intensity and there is no evidence of cord contusion. There is no eviden ce of an extradural, intradural, extramedullary or intramedullary lesion. Visualized soft tissues are normal. IMPRESSION: 1. Disc protrusion and extrusion at L3-L4 with associated severe canal stenosis and severe impingeme nt on the exiting right-sided nerve roots. 2. Multilevel degenerative changes are otherwise seen as above. ACT 112: Negative or not required by law. Electronically signed by: Tab Steele M.D. 12/27/2023 8:02 PM
[2023-12-28] MEDS: KETOROLAC TROMETHAMINE 15 MG/ML VIAL IV ONE (03:44)
[2023-12-28] MEDS: SODIUM CHLORIDE 0.9% 1,000 ML IV ONE (03:45)
[2023-12-28] MEDS: KETOROLAC 30 MG/ML VIAL IV PRN (08:29)
[2023-12-28] MEDS: POLYETHYLENE (MIRALAX) 17 GM PACK PO PRN (13:11)
--- NOTE | 2023-12-28 15:56 | Orthopedic Progress Note ---
Date of Service December 28, 2023 Assessment & Plan (1) Lumbar disc herniation with radiculopathy: Plan: Assessment lumbar disc herniation L3-L4 with severe spinal stenosis and progressive neurologic deficit. Plan at this time in light of his presentation continued pain and weakness and recommending urgent decompression fusion to prevent permanent neurologic damage. He would require a wide decompression with bilateral medial facetectomies to address the stenosis creating iatrogenic instability/subsequently requiring fusion. Risk minus pros cons alternatives again outlined detail. I will make him n.p.o. after midnight plan for surgery tomorrow. Admission and Anticipated Discharge Date Admission Date: December 26, 2023 Subjective Patient continues complain of severe right leg pain and weakness. This is exacerbated with activity. Physical Exam Physical Exam: On exam he prefers to stand on his left leg. Continues demonstrate tension signs straight leg raising on the right and strength deficits to the quadricep. Results & Data Vital Signs (Past 12 Hours) Vital Signs Temp Pulse Resp BP BP Pulse Ox O2 Del Method 12/28/23 14:33 36.8 C 103 H 16 144/79 H 93 Room Air 12/28/23 07:31 36.5 C 71 16 123/74 98 Room Air
--- NOTE | 2023-12-28 16:33 | Anesthesiology Consultation ---
Date of Service December 28, 2023 Assessment & Plan Chart Review Chart Review: Acceptable Risk for Surgery Consults Requested none History Surgery Operation Date: 12/29/23 10:55 Proposed Procedures p L3-L4 Decomrpession and Fusion, Spinal Cord Monitoring - Gerardo Boo DO Height/Weight Height: 6 ft 3 in Weight: 104.281 kg Allergies Allergy/AdvReac Type Severity Reaction Status Date / Time No Known Allergies Allergy Verified 12/26/23 17:00 Medications Home Medications Medication Instructions Recorded Confirmed Last Taken cyclobenzaprine 10 mg tablet 10 mg PO TID PRN MUSCLE SPASMS 12/26/23 12/26/23 Unknown dextroamphetamine-amphetamine 20 0 mg PO DAILY 12/26/23 12/26/23 12/26/23 08:00 mg tablet 20 MG gabapentin 300 mg capsule 300 mg PO DIRECTED 12/26/23 12/26/23 12/25/23 magnesium oxide 420 mg tablet 840 mg PO DAILY 12/26/23 12/26/23 12/26/23 prednisone 50 mg tablet 50 mg PO DAILY 12/26/23 12/26/23 12/26/23 turmeric root extract 1,053 mg 1,076 mg PO DAILY 12/26/23 12/26/23 12/26/23 tablet Active Medications Generic Name Dose Route Start Last Admin Trade Name Laure PRN Reason Stop Dose Admin Acetaminophen 650 mg 12/26/23 21:00 12/28/23 07:21 Acetaminophen 325 Mg Tab PO 01/25/24 20:59 650 mg Q4H PRN Administration pain/fever Amphetamine/Dextroamphetamine 20 mg 12/27/23 09:00 12/28/23 08:17 Dextroamphetamine/Amphetamine Ir 20 Mg Tab PO 01/10/24 08:59 20 mg DAILY NANY Administration Cyclobenzaprine HCl 10 mg 12/26/23 21:00 12/28/23 13:09 Cyclobenzaprine Hcl 10 Mg Tab PO 01/25/24 20:59 10 mg TID NANY Administration Gabapentin 300 mg 12/26/23 21:00 12/27/23 20:40 Gabapentin 300 Mg Cap PO 01/25/24 20:59 300 mg HS NANY Administration Hydromorphone HCl 0.5 mg 12/27/23 04:44 12/28/23 16:13 Hydromorphone Inj 0.5 Mg/0.5 Ml Syr IV 01/09/24 21:10 0.5 mg Q4H PRN Administration Pain Dexamethasone 10 mg/ Syringe 2.5 mls @ 1 mls/min 12/26/23 21:30 12/28/23 13:10 IV 01/25/24 21:29 1 mls/min Q8H NANY Administration Sodium Chloride 1,000 mls @ 60 mls/hr 12/28/23 03:13 12/28/23 03:45 Nss IV 12/28/23 19:52 60 mls/hr .[id number] ONE Administration Ketorolac Tromethamine 30 mg 12/28/23 08:22 12/28/23 15:26 Ketorolac 30 Mg/Ml Vial IV 01/02/24 08:21 30 mg Q6H PRN Administration moderate-severe pain Lidocaine 1 patch 12/27/23 09:00 12/28/23 07:22 Lidocaine 5% 1 Patch TD 01/26/24 08:59 [place] [facility] [place] 6 mg 12/26/23 21:10 12/27/23 20:49 Melatonin 3 Mg Tab PO 01/25/24 21:09 6 mg HS PRN Administration Sleep Miscellaneous 1 each 12/26/23 21:00 12/27/23 20:40 Remove Lidoderm Patch N/A 01/25/24 20:59 Not Given DAILY@2100 ON LICENSE OF [facility] Miscellaneous 1 each 12/26/23 20:59 12/27/23 20:41 Remove Nicoderm Patch N/A 01/25/24 20:58 1 each DAILY@2058 ON LICENSE OF [facility] Administration Nicotine 14 mg 12/26/23 21:00 12/27/23 20:40 Nicotine 14 Mg/24 Hr Patch TD 01/25/24 20:59 14 mg HS NANY Administration Oxycodone HCl 5 - 10 mg 12/27/23 09:59 12/28/23 13:33 Oxycodone Hcl Ir 5 Mg Tab (Immediate Release) PO 01/10/24 09:57 10 mg Q4H PRN Administration Back Pain Polyethylene Glycol 17 gm 12/26/23 21:00 12/28/23 13:11 Polyethylene (Miralax) 17 Gm Pack PO 01/25/24 20:59 17 gm DAILY PRN Administration Constipation Sennosides 17.2 mg 12/27/23 09:00 12/28/23 07:21 Senna 8.6 Mg Tab PO 01/26/24 08:59 17.2 mg QAM NANY Administration Past Medical History Medical History (Updated 12/28/23 @ 16:31 by Tamiko Staples DO) Lumbar disc herniation with radiculopathy Foreign body in eye Chronic hip pain Tobacco abuse ADHD Past Family History Family History (Updated 12/26/23 @ 18:31 by Lila Delgado PA-C) Father Osteoarthritis Past Surgical History Surgical History (Updated 12/26/23 @ 18:30 by Lila Delgado PA-C) No pertinent past surgical history Social History Smoking Status: Never smoker Smoking cigarettes per day: 1 can/day Do You Dip or Chew Tobacco: Yes (snuff 1 can per day) Hx Alcohol Use: Yes Alcohol type: beer alcohol intake frequency: other Alcohol Intake Frequency Comment: 2 beers/week, last drink x2 weeks ago Hx Substance Use: No substance use type: does not use Physical Exam Vital Signs Last Vital Signs Temp 36.8 C 12/28/23 14:33 Pulse 103 H 12/28/23 14:33 Resp 16 12/28/23 14:33 BP 144/79 H 12/28/23 14:33 Pulse Ox 93 12/28/23 14:33 O2 Del Method Room Air 12/28/23 14:33 Testing Laboratory Results 12/27/23 05:33 12/27/23 06:44 12/27/23 gluc 170 otherwise WNL
--- NOTE | 2023-12-28 17:54 | Hospitalist Progress Note ---
Date of Service December 28, 2023 Assessment & Plan (1) Acute exacerbation of chronic low back pain: (2) Lumbar back pain with radiculopathy affecting right lower extremity: (3) Tobacco abuse: (4) ADHD: Plan Per admitting services with addendum: This is a 28-year-old male who has significant past medical history of ADHD and tobacco abuse who presents to ED secondary to worsening back pain with radiculopathy. Acute on chronic low back pain Lumbar back pain with radiculopathy affecting right lower extremity Admit to medical Consult Dr. 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 Boo 12/26 Pain improving. Yesterday but still significant Continue Decadron IV, gabapentin, Flexeril, as needed oxycodone and Dilaudid Evaluated by Dr. Boo, plan for surgical intervention tomorrow or Thursday No medical contraindications to proceed with planned surgery Will monitor very closely 12/27 Continue pain regimen Awaiting surgery Tobacco abuse Encourage cessation Nicotine patch ADHD Adderall DVT prophylaxis: SCDs Heparin and Lovenox on hold, initiate when okay with orthopedic surgery service Full code PCP: Macho Mckay @ [facility] Dispo: Pending Admission and Anticipated Discharge Date Admission Date: December 26, 2023 Subjective Follow-up for intractable back pain, lumbar spine stenosis, etc. Seen resting in bed, sleeping but easily awakened States he is still having significant back pain Analgesics relieving the pain, but still gets severe intermittently No leg weakness or numbness No incontinence No other new symptoms Review of Systems Review of Systems: all noted and negative except for above Physical Exam Physical Exam: General- oriented x 3, not in distress, speaks in sentences with no effort or accessory muscle use Eyes- anicteric Neck- no JVD Lungs- clear breath sounds bilaterally, no crackles or wheeze Heart- normal rate, regular rhythm; no murmurs Abdomen- normal bowel sounds, nondistended, soft, nontender Extremities- no pretibial edema, no calf tenderness Neuro- alert, oriented x 3; no gross focal neurologic deficits Skin- warm & dry Results & Data Results & Data Vital Signs (Past 12 Hours) Vital Signs Temp Pulse Resp BP BP Pulse Ox O2 Del Method 12/28/23 14:33 36.8 C 103 H 16 144/79 H 93 Room Air 12/28/23 07:31 36.5 C 71 16 123/74 98 Room Air all noted and reviewed including below
[2023-12-28] MEDS: PANTOprazole 40 MG TAB PO SCH (18:31)
[2023-12-28] MEDS: MAGNESIUM HYDROXIDE SUSP 30 ML UDC PO PRN (19:51)
--- NOTE | 2023-12-29 07:49 | History & Physical Bridge Note ---
Date of Service December 29, 2023 History & Physical Bridge Note I have examined the patient, reviewed the History & Physical and in the interval since the performance of the History & Physical I have noted the following changes of clinical significance: no changes noted Patient presents with progressive neurologic decline consistent with an L4 radiculopathy. In light of his motor deficit and severe pain I am recommending emergent decompression fusion to hopefully alter neurologic injury and and time improvement of function.
[2023-12-29] MEDS ORDERED: HYDROmorphone INJ 2 MG/ML SYR/VIAL IV PRN (10:18)
[2023-12-29] MEDS ORDERED: ATROPINE SULFATE 0.1 MG/ML 10ML SYR IV PRN (10:18)
[2023-12-29] MEDS ORDERED: fentaNYL citrate PF 100 MCG/2 ML VIAL IV PRN (10:18)
[2023-12-29] MEDS ORDERED: ONDANSETRON INJ 2 MG/ML 2 ML VIAL IV PRN ×2 (10:18→16:03)
[2023-12-29] MEDS ORDERED: ePHEDrine sulfate 50 MG/ML AMP IV PRN (10:18)
[2023-12-29] MEDS: LACTATED RINGER'S 1,000 ML IV SCH ×2 (10:33→16:05)
[2023-12-29] MEDS ORDERED: LIDOCAINE 2% 2 ML VIAL/AMP(20MG/ML) INFIL ONE (10:47)
[2023-12-29] MEDS ORDERED: PROPOFOL IV EMULSION 10 MG/ML 20 ML VIAL IV ONE (10:47)
[2023-12-29] MEDS ORDERED: ROCURONIUM BROMIDE 10 MG/ML 5 ML VIAL IV ONE ×3 (10:47→14:04)
[2023-12-29] MEDS ORDERED: DEXAMETHASONE SOD INJ 4 MG/ML VIAL ONE (10:47)
[2023-12-29] MEDS ORDERED: ONDANSETRON INJ 2 MG/ML 2 ML VIAL ONE (10:47)
[2023-12-29] MEDS ORDERED: MIDAZOLAM HCL 1 MG/ML 2ML VIAL ONE (10:48)
[2023-12-29] MEDS ORDERED: SUGAMMADEX SODIUM 200 MG/2 ML VIAL IV ONE (10:48)
[2023-12-29] MEDS ORDERED: fentaNYL citrate PF 100 MCG/2 ML VIAL ONE (10:48)
[2023-12-29] MEDS ORDERED: HYDROmorphone INJ 2 MG/ML SYR/VIAL ONE (13:14)
[2023-12-29] MEDS: BUPIVACAINE/EPINEPHRINE 0.5% MPF 1:200,000 30 ML VIAL ONE (13:16)
[2023-12-29] MEDS: ceFAZolin 2000MG 2,000 MG/15 ML SYR IV ONE (13:45)
[2023-12-29] MEDS: ceFAZolin 2,000 MG/15 ML IV PUSH IV ONE (13:45)
[2023-12-29] MEDS: ceFAZolin 330 MG/ML 1 GM VIAL ONE (13:51)
[2023-12-29] MEDS: FLOSEAL HEMOSTATIC MATRIX 10ML TOP ONE (14:15)
--- NOTE | 2023-12-29 14:34 | Operative Report ---
Post Operative Report Pre & Post Diagnosis Operation Date: 12/29/23 10:55 Pre-Op Diagnosis: Lumbar disc herniation with radiculopathy Post-Op Diagnosis: Lumbar disc herniation with radiculopathy I identified the patient and participated in the time-out.: Yes Procedure Operation Date: 12/29/23 10:55 Actual Procedures #1 lumbar decompression bilaterally facetectomies and foraminotomies L3-L4. #2 posterior spinal fusion L3-L4. #3 placed posterior instrumentation L3-L4. #4 interbody fusion L3-4. #5 placement Spira 13 x 26 mm L3-4. #6 placement locall y harvested morselized autograft and posterior gutters. #7 placement infuse collagen sponge combined with Koros in the posterior lateral gutters and Morpheus interbody space. Surgeon Gerardo Boo DO [employer] None Estimated Blood Loss 50 Findings Consistent with Post-Op Diagnosis Specimens None Indications This is a 28-year-old male who presents with significant lumbar radiculopathy and neurologic deficit and here for urgent decompression fusion. Description of Procedure Patient was met with identified informed consent obtained. Patient was then taken to the operative suite underwent patient placed in a prone position the Van Dyne table top Lewis frame. All bony promises well-padded eyes inspected to ensure no external pressure placed upon the. This point lumbar spine was prepped and draped in normal sterile fashion. Sharp dissection with the assistance of Bovie cautery form down to and exposing the lamina transverse processes of L3-L4 bilaterally. From caudal cephalad fashion complete laminectomy of L3 was performed including bilateral medial facetectomies and foraminotomies addressing all lateral recess and foraminal stenosis. Also identified evidence of large fragments of disc material migrating caudally and removed in their entirety. Pedicle screws were then placed at L3-L4 bilaterally with assistance of fluoroscopy and the purposes sue placed. By way the transforaminal approach on the right complete discectomy was performed endplates guided to subcortical bleeding bone and a 14 x 26 mm Spira cage filled with Morpheus bone graft tapped in position. The rods were then compressed locked in final position bilaterally. The transverse processes of L4-L4 burred to subcortical bleeding bone. Infuse collagen sponge Koros and local autograft placed in the posterior gutters. 15 round ROSA ISELA drain inserted. The incision was then closed with 1 Vicryl the fascia 2-0 Vicryl subcutaneously and 4 Monocryl for final skin closure. Steri-Strips sterile dressing placed. Patient waken taken to PACU in stable condition. Please note spinal cord monitoring was utilized at the procedure no changes noted. I attest to the content of the Intraoperative Record and any orders documented therein. Any exceptions are noted below.
--- NOTE | 2023-12-29 14:34 | Hospitalist Progress Note ---
Date of Service December 29, 2023 Assessment & Plan (1) Acute exacerbation of chronic low back pain: (2) Lumbar back pain with radiculopathy affecting right lower extremity: (3) Tobacco abuse: (4) ADHD: Plan This is a 28-year-old male who has significant past medical history of ADHD and tobacco abuse who presents to ED secondary to worsening back pain with radiculopathy. Acute on chronic low back pain Lumbar back pain with radiculopathy affecting right lower extremity Admit to medical Consult Dr. 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 Placed on dexamethasone 10 mg every 8 hours Scheduled Flexeril 3 times daily, lidocaine patch As needed oxycodone for moderate pain, as needed morphine for severe pain Fall precautions Pt to undergo surgical intervention today, he is NPO Hyperglycemia likely 2/2 steroids a1c in am. will consider sliding scale coverage if remains elevated Tobacco abuse Encourage cessation Nicotine patch ADHD Adderall DVT prophylaxis: SCDs Full code PCP: Macho Mckay @ [facility] Dispo: Pending surgery, PT/OT marnie Pt was seen and examined in collaboration with Dr. Correa, please see addendum A total of 42 minutes was spent coordinating, documenting, and providing care for this patient excluding time spent in the performance of separately billed services. This included personally viewing all current laboratories and imaging studies, medication reconciliation, outpatient chart review, and discussion with specialists. Admission and Anticipated Discharge Date Admission Date: December 26, 2023 Supervising Physician Co-Signing Physician Notes Attending Addendum: care coordinated with RUBENS Delgado's notes please refer to her notes for full details, I agree with her notes patient seen and examined, records reviewed by myself as well doing well after surgery ASSESSMENT AND PLAN diagnoses and plan of care as per RUBENS Delgado's notes Csear Correa MD Subjective Pt was seen in room 377-1. F/U back with with radiculopathy. His parents are at bedside who have questions for Dr. Boo. He is standing at bedside due to pain. He offers no concerns and wonders when he will go to the OR today. He denies f/c/s, chest pain, sob, n/v/d. Review of Systems Review of Systems: All systems reviewed & are unremarkable except as noted in HPI & below Physical Exam Physical Exam: Gen: WD/WN, standing at bedside, NAD, A&O x3 HEENT: Normocephalic, atraumatic, conjunctivae moist, sclerae anicteric, mucous membranes moist. Lung: no audible wheeze, rale, rhonchi Extremities: No edema Skin: Warm, no rash, negative turgor. Results & Data Results & Data Vital Signs (Past 12 Hours) Vital Signs Temp Pulse Resp BP BP Pulse Ox O2 Del Method 12/29/23 10:20 36.6 C 121 H 20 142/97 H 97 Room Air 12/29/23 07:40 36.5 C 75 16 143/86 H 97 Room Air Medications Administered Current Inpatient Medications Acetaminophen (Acetaminophen 325 Mg Tab) 650 mg PO Q4H PRN PRN Reason: pain/fever Stop: 01/25/24 20:59 Last Admin: 12/28/23 07:21 Dose: 650 mg Al Hydrox/Mg Hydrox/Simethicone (Aluminum/Magnesium Susp 30 Ml Udc) 30 ml PO Q6H PRN PRN Reason: Dyspepsia Stop: 01/25/24 20:59 Amphetamine/Dextroamphetamine (Dextroamphetamine/Amphetamine Ir 20 Mg Tab) 20 mg PO DAILY [facility] Stop: 01/10/24 08:59 Last Admin: 12/29/23 08:03 Dose: 20 mg Atropine Sulfate (Atropine Sulfate 0.1 Mg/Ml 10ml Syr) 0.5 mg IV Q1M PRN PRN Reason: PACU Use-HR<40 &/or Bradycardi Stop: 12/29/23 18:18 Cyclobenzaprine HCl (Cyclobenzaprine Hcl 10 Mg Tab) 10 mg PO TID [facility] Stop: 01/25/24 20:59 Last Admin: 12/29/23 07:02 Dose: 10 mg Ephedrine Sulfate (Ephedrine Sulfate 50 Mg/Ml Amp) 5 mg IV Q5M PRN PRN Reason: PACU Use Only-SBP<90 mmHg Stop: 12/29/23 18:18 Fentanyl Citrate (Fentanyl Citrate Pf 100 Mcg/2 Ml Vial) 50 mcg IV Q5M PRN PRN Reason: PACU Use Only-Pain Stop: 12/29/23 18:18 Gabapentin (Gabapentin 300 Mg Cap) 300 mg PO HS [facility] Stop: 01/25/24 20:59 Last Admin: 12/28/23 20:10 Dose: 300 mg Hydromorphone HCl (Hydromorphone Inj 0.5 Mg/0.5 Ml Syr) 0.5 mg IV Q4H PRN PRN Reason: Pain Stop: 01/09/24 21:10 Last Admin: 12/29/23 09:38 Dose: 0.5 mg Hydromorphone HCl (Hydromorphone Inj 2 Mg/Ml Syr/Vial) 0.5 mg IV Q5M PRN PRN Reason: PACU Use Only-Pain Stop: 12/29/23 18:18 Dexamethasone 10 mg/ Syringe 2.5 mls @ 1 mls/min IV Q8H NANY Stop: 01/25/24 21:29 Last Admin: 12/29/23 05:45 Dose: 1 mls/min Lactated Ringer's (Lr) 1,000 mls @ 15 mls/hr IV .Q24H [facility] Stop: 01/28/24 10:14 Last Admin: 12/29/23 10:33 Dose: 15 mls/hr Ketorolac Tromethamine (Ketorolac 30 Mg/Ml Vial) 30 mg IV Q6H PRN PRN Reason: moderate-severe pain Stop: 01/02/24 08:21 Last Admin: 12/29/23 06:02 Dose: 30 mg Lidocaine (Lidocaine 5% 1 Patch) 1 patch TD QAM [facility] Stop: 01/26/24 08:59 Last Admin: 12/29/23 07:02 Dose: Not Given Magnesium Hydroxide (Magnesium Hydroxide Susp 30 Ml Udc) 30 ml PO Q6H PRN PRN Reason: Constipation Stop: 01/25/24 20:59 Last Admin: 12/28/23 19:51 Dose: 30 ml Melatonin (Melatonin 3 Mg Tab) 6 mg PO HS PRN PRN Reason: Sleep Stop: 01/25/24 21:09 Last Admin: 12/28/23 21:49 Dose: 6 mg Miscellaneous (Remove Lidoderm Patch) 1 each N/A DAILY@2100 [facility] Stop: 01/25/24 20:59 Last Admin: 12/28/23 20:11 Dose: Not Given Miscellaneous (Remove Nicoderm Patch) 1 each N/A DAILY@2058 [facility] Stop: 01/25/24 20:58 Last Admin: 12/28/23 20:10 Dose: 1 each Nicotine (Nicotine 14 Mg/24 Hr Patch) 14 mg TD HS [facility] Stop: 01/25/24 20:59 Last Admin: 12/28/23 20:10 Dose: 14 mg Ondansetron HCl (Ondansetron Inj 2 Mg/Ml 2 Ml Vial) 4 mg IV Q6H PRN PRN Reason: Nausea Stop: 01/25/24 20:59 Ondansetron HCl (Ondansetron Inj 2 Mg/Ml 2 Ml Vial) 4 mg IV ONCE PRN PRN Reason: PACU Use Only-Nausea/Vomiting Stop: 12/29/23 18:18 Oxycodone HCl (Oxycodone Hcl Ir 5 Mg Tab (Immediate Release)) 5 - 10 mg PO Q4H PRN PRN Reason: Back Pain Stop: 01/10/24 09:57 Last Admin: 12/29/23 07:01 Dose: 10 mg Pantoprazole Sodium (Pantoprazole 40 Mg Tab) 40 mg PO QAM [facility] Stop: 01/27/24 17:59 Last Admin: 12/29/23 07:02 Dose: 40 mg Polyethylene Glycol (Polyethylene (Miralax) 17 Gm Pack) 17 gm PO DAILY PRN PRN Reason: Constipation Stop: 01/25/24 20:59 Last Admin: 12/28/23 13:11 Dose: 17 gm Sennosides (Senna 8.6 Mg Tab) 17.2 mg PO QAM [facility] Stop: 01/26/24 08:59 Last Admin: 12/29/23 07:02 Dose: 17.2 mg
--- NOTE | 2023-12-29 15:03 | Fluoroscopy Report ---
[place] lumbar spine 2-3V CLINICAL HISTORY: L3-L4 DECOMPRESSION AND FUSION COMPARISON STUDY: MRI 12/27/2023 FLUOROSCOPY TIME: 20.2 seconds FLUOROSCOPY IMAGES: No EXPOSURE DOSE: 18.1 mGy FINDINGS: Posterior interbody sue and screw fusion with discectomy noted at what is labeled the L3-L4 level. Exact numbering cannot be confirmed secondary to magnification. Note that the images were sub mitted following completion of the surgery. No unexpected opaque foreign bodies. IMPRESSION: Fluoroscopic assistance as above. ACT 112: Negative or not required by law. Electronically signed by: Avila Quiroz M.D. 12/29/2023 3:02 PM
--- NOTE | 2023-12-29 15:30 | Anesthesiology Progress Note ---
Date of Service December 29, 2023 Anesthesia Post Procedure Vital Signs Vital Signs: Temp Pulse Pulse Resp BP BP Pulse Ox 12/29/23 15:20 64 12 115/71 97 12/29/23 15:10 65 12 126/75 97 12/29/23 15:00 66 15 124/75 97 12/29/23 14:50 69 12 128/73 96 12/29/23 14:45 98.1 F 70 16 121/73 96 12/29/23 10:20 97.9 F 121 H 20 142/97 H 97 12/29/23 07:40 97.7 F 75 16 143/86 H 97 12/28/23 20:45 98.4 F 79 18 143/70 H 98 O2 Del Method O2 Flow Rate 12/29/23 15:20 Nasal Cannula 2 12/29/23 15:10 Nasal Cannula 2 12/29/23 15:00 Nasal Cannula 2 12/29/23 14:50 Nasal Cannula 2 12/29/23 14:45 Nasal Cannula 2 12/29/23 10:20 Room Air 12/29/23 07:40 Room Air 12/28/23 20:45 Room Air Pain Intensity Right Leg: Pain Intensity: 7 Back: Pain Intensity: 8 Transfer of Care Handoff Completed per policy Notes Mental Status: alert / awake / arousable and participated in evaluation Patient Amnestic to Procedure: Yes Nausea / Vomiting: adequately controlled Pain: adequately controlled Airway Patency, RR, SpO2: stable & adequate BP & HR: stable & adequate Hydration State: stable & adequate Anesthetic Complications: no major complications apparent and Pt Satisfied with anesthetic care
[2023-12-29] MEDS ORDERED: DO NOT ADMINISTER FLU VACCINE PRN (16:03)
[2023-12-29] MEDS ORDERED: diphenhydrAMINE Capsule 25 MG CAP PO PRN (16:03)
[2023-12-29] MEDS ORDERED: ACETAMINOPHEN 1,000 MG/100 ML VIAL IV PRN (16:03)
[2023-12-29] MEDS ORDERED: hydrOXYzine HCl 25 MG TAB PO PRN (16:03)
[2023-12-29] MEDS ORDERED: METOCLOPRAMIDE HCL INJ 5 MG/ML 2 ML VIAL IV PRN (16:03)
[2023-12-29] MEDS ORDERED: PROMETHAZINE HCL 12.5 MG in SODIUM CHLORIDE 0.9% 50 ML IV PRN (16:03)
[2023-12-29] MEDS ORDERED: NALOXONE HCL 0.4 MG/1 ML VIAL/CARP IV PRN (16:03)
[2023-12-29] MEDS ORDERED: ALUMINUM/MAGNESIUM SUSP 30 ML UDC PO PRN (16:03)
[2023-12-29] MEDS ORDERED: bisacodyL 10 MG SUPP PR PRN (16:03)
[2023-12-29] MEDS ORDERED: FAMOTIDINE 20 MG TAB PO PRN (16:03)
[2023-12-29] MEDS ORDERED: ONDANSETRON 4 MG OD TAB PO PRN (16:03)
[2023-12-29] MEDS ORDERED: LORazepam 0.5 MG TAB PO PRN (16:03)
[2023-12-29] MEDS ORDERED: HYDROmorphone INJ 0.5 MG/0.5 ML SYR IV PRN (16:03)
[2023-12-29] MEDS ORDERED: LORazepam 0.5 MG in SYRINGE 0.25 ML IV PRN (16:03)
[2023-12-29] MEDS ORDERED: DO NOT ADMINISTER PNEUMOCOCCAL VACCINE PRN (16:03)
[2023-12-29] MEDS ORDERED: SOD PHOSPHATE/SOD BIPHOSPHATE ENEMA 132 ML BTL PR PRN (16:03)
[2023-12-29] MEDS: HYDROmorphone INJ 1 MG/ML SYRINGE IV PRN (16:15)
[2023-12-29] MEDS: oxyCODONE HCL IR 5 MG TAB (IMMEDIATE RELEASE) PO PRN (19:31)
[2023-12-29] MEDS: DOCUSATE SODIUM/SENNA 50/8.6MG TAB PO SCH (21:17)
[2023-12-29] MEDS: ceFAZolin 2000MG 2,000 MG/15 ML SYR IV SCH (21:18)
[2023-12-29] MEDS: traMADol HCL 50 MG TABLET PO PRN (22:46)
[2023-12-29] MEDS: MELATONIN 3 MG TAB PO ONE (22:46)
[2023-12-30] MEDS: POLYETHYLENE (MIRALAX) 17 GM PACK PO SCH (05:54)
[2023-12-30] MEDS: dexAMETHasone 6 MG in SYRINGE 0 ML IV SCH (07:35)
[2023-12-30 08:10] LABS: Basophils # (auto) 0.02 K/uL (0.00-0.20); Basophils % (auto) 0.1 %; Hematocrit (blood only) 37.7 % (42.0-52.0); Immature Granulocytes # (auto) 0.14 K/uL (0.01-0.20); Immature Granulocytes % (auto) 0.9 %; Lymphocytes % (auto) 9.7 %; Mean Corpuscular Hemoglobin 28.3 pg (25.0-34.0); Mean Corpuscular Hgb Conc 31.8 g/dL (32.0-36.0); Mean Corpuscular Volume 88.9 fL (80.0-100.0); Mean Platelet Volume 10.9 fL (9.4-12.4); Monocytes # (auto) 1.63 K/uL (0.11-0.59); Monocytes % (auto) 10.5 %; Neutrophils # (auto) 12.17 K/uL (1.40-6.50); Neutrophils % (auto) 78.8 %; Platelet Count 218 K/uL (130-400); RDW Coefficient of Variation 13.6 % (11.5-14.5); RDW Standard Deviation 44.4 fL (36.4-46.3); Red Blood Count 4.24 M/uL (4.70-6.10); White Blood Count 15.46 K/ul (4.8-10.8)
[2023-12-30 08:12] LABS: Estimated Average Glucose 117 mg/dl; Hemoglobin A1C 5.7 % (4.5-5.6)
[2023-12-30 08:31] LABS: BUN Creatinine Ratio 29.7 (10-20); Calcium 8.6 mg/dl (8.6-10.3); Creatinine Clr Calc Pharmacy 194.3 ml/min; Est GFR (African American) 145.5 ml/min; Est GFR (Non-African American) 125.5 ml/min; Potassium 4.1 mmol/L (3.5-5.1)
--- NOTE | 2023-12-30 11:58 | Hospitalist Progress Note ---
Date of Service December 30, 2023 Assessment & Plan (1) Acute exacerbation of chronic low back pain: (2) Lumbar back pain with radiculopathy affecting right lower extremity: (3) Tobacco abuse: (4) ADHD: Plan This is a 28-year-old male who has significant past medical history of ADHD and tobacco abuse who presents to ED secondary to worsening back pain with radiculopathy. Acute on chronic low back pain Lumbar back pain with radiculopathy affecting right lower extremity Admit to medical Consult Dr. 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 He is s/p lumbar decompression fusion L3-L4 He is doing very well postoperatively and his pain is minimal Will change Flexeril to as needed, continue as needed oxycodone Acute blood loss anemia, expected surgical blood loss along with dilution Hemoglobin was 15, suspect hemoconcentrated Hemoglobin 12, will continue to monitor ROSA ISELA drain output Hyperglycemia Prediabetes likely 2/2 steroids A1c 5.7 Likely will improve once off steroid Would recommend repeat A1c in 3 months with PCP will consider sliding scale coverage if remains elevated Tobacco abuse Encourage cessation Nicotine patch ADHD Adderall DVT prophylaxis: SCDs Full code PCP: Macho Mckay @ [facility] Dispo: Pending surgery, PT/OT evals Pt was seen and examined in collaboration with Dr. Dolan, please see addendum A total of 44 minutes was spent coordinating, documenting, and providing care for this patient excluding time spent in the performance of separately billed services. This included personally viewing all current laboratories and imaging studies, medication reconciliation, outpatient chart review, and discussion with specialists. Admission and Anticipated Discharge Date Admission Date: December 26, 2023 Supervising Physician Co-Signing Physician Notes Patient seen and examined independently. Discussed with above provider Patient reports resolution of back and leg pain He is ambulating on the hallways well ROSA ISELA drain in place Continue PT OT Pain control I have reviewed the advanced practitioner's documentation, and I agree with, and take responsibility for the plan of care I spent a total of 15 minutes coordinating, documenting, and providing care for this patient excluding time spent in the performance of separately billed services. All of the aforementioned completed while collaborating with the assigned advanced practitioner for a full treatment plan Subjective Pt was seen in room 377-1. F/U back with with radiculopathy. His back pain has completely resolved, expect incisional pain. He was able to lay flat and sleep last night. He denies f/c/s, chest pain, sob, n/v/d. + BM yesterday. Good appetite. Review of Systems Review of Systems: All systems reviewed & are unremarkable except as noted in HPI & below Physical Exam Physical Exam: Gen: WD/WN, standing at bedside, NAD, A&O x3 HEENT: Normocephalic, atraumatic, conjunctivae moist, sclerae anicteric, mucous membranes moist. CV: RRR Lung: no audible wheeze, rale, rhonchi Extremities: No edema Skin: Warm, no rash, negative turgor. Dressing CDI, Rosa Isela drain with serosang drainage Results & Data Results & Data Vital Signs (Past 12 Hours) Vital Signs Temp Pulse Resp BP Pulse Ox O2 Del Method 12/30/23 08:00 Room Air 12/30/23 07:37 36.4 C L 75 16 134/74 93 Room Air 12/30/23 03:12 36.6 C 71 18 116/69 96 Room Air Laboratory Results Short CBC 12/30/23 Range/Units 07:37 WBC 15.46 H (4.8-10.8) K/ul Hgb 12.0 L (14.0-18.0) g/dl Hct 37.7 L (42.0-52.0) % Plt Count 218 (130-400) K/uL BMP 12/30/23 07:37 Sodium 137 Potassium 4.1 Chloride 102 Carbon Dioxide 30 BUN 22 Creatinine 0.74 Glucose 172 H Calcium 8.6 Medications Administered Current Inpatient Medications Acetaminophen (Acetaminophen 500 Mg Tab) 1,000 mg PO Q8H PRN PRN Reason: MILD Pain Scale 1,2,3 & Pre PT Stop: 01/28/24 16:02 Al Hydrox/Mg Hydrox/Simethicone (Aluminum/Magnesium Susp 30 Ml Udc) 30 ml PO Q6H PRN PRN Reason: Dyspepsia Stop: 01/28/24 16:02 Amphetamine/Dextroamphetamine (Dextroamphetamine/Amphetamine Ir 20 Mg Tab) 20 mg PO DAILY [facility] Stop: 01/10/24 08:59 Last Admin: 12/30/23 07:34 Dose: 20 mg Bisacodyl (Bisacodyl 10 Mg Supp) [address] DAILY PRN PRN Reason: Constipation Stop: 01/28/24 16:02 Cyclobenzaprine HCl (Cyclobenzaprine Hcl 10 Mg Tab) 10 mg PO TID [facility] Stop: 01/25/24 20:59 Last Admin: 12/30/23 07:35 Dose: 10 mg Famotidine (Famotidine 20 Mg Tab) 20 mg PO Q12H PRN PRN Reason: Dyspepsia Stop: 01/28/24 16:02 Gabapentin (Gabapentin 300 Mg Cap) 300 mg PO HS [facility] Stop: 01/25/24 20:59 Last Admin: 12/29/23 21:17 Dose: 300 mg Hydromorphone HCl (Hydromorphone Inj 0.5 Mg/0.5 Ml Syr) 0.5 mg IV Q3H PRN PRN Reason: MODERATE Pain (Scale 4,5,6) & Pre PT Stop: 01/12/24 16:02 Hydromorphone HCl (Hydromorphone Inj 1 Mg/Ml Syringe) 1 mg IV Q3H PRN PRN Reason: SEVERE Pain (Scale 7,8,9,10) Stop: 01/12/24 16:02 Last Admin: 12/30/23 06:04 Dose: 1 mg Hydroxyzine HCl (Hydroxyzine Hcl 25 Mg Tab) 25 mg PO Q8H PRN PRN Reason: Anxiety Stop: 01/28/24 16:02 Acetaminophen (Ofirmev) 1,000 mg in 100 mls @ 400 mls/hr IV Q8H PRN PRN Reason: Pain Rating 1-3 & Pre PT Stop: 12/30/23 16:03 Dexamethasone 6 mg/ Syringe 1.5 mls @ 1 mls/min IV DAILY [facility] Stop: 01/01/24 09:02 Last Admin: 12/30/23 07:35 Dose: 1 mls/min Promethazine HCl 12.5 mg/ (Sodium Chloride) 50.5 mls @ 202 mls/hr IV Q6H PRN PRN Reason: Nausea &/or Vomiting Stop: 01/28/24 16:02 Lorazepam 0.5 mg/ Syringe 0.5 mls @ 2 mls/min IV Q8H PRN; Protocol PRN Reason: Sedation/Anxiety Stop: 01/28/24 16:02 Influenza Virus Vaccine Quadrival (Do Not Administer Flu Vaccine) 1 each N/A PRN PRN PRN Reason: Notification Stop: 01/28/24 16:02 Lorazepam (Lorazepam 0.5 Mg Tab) 0.5 mg PO Q8H PRN PRN Reason: Sedation/Anxiety Stop: 01/28/24 16:02 Magnesium Hydroxide (Magnesium Hydroxide Susp 30 Ml Udc) 30 ml PO Q24H PRN PRN Reason: Constipation Stop: 01/28/24 16:02 Melatonin (Melatonin 3 Mg Tab) 6 mg PO HS PRN PRN Reason: Sleep Stop: 01/28/24 22:25 Metoclopramide HCl (Metoclopramide Hcl Inj 5 Mg/Ml 2 Ml Vial) 10 mg IV Q6H PRN PRN Reason: Nausea &/or Vomiting Stop: 01/28/24 16:02 Miscellaneous (Remove Lidoderm Patch) 1 each N/A DAILY@2100 [facility] Stop: 01/25/24 20:59 Last Admin: 12/29/23 21:27 Dose: Not Given Miscellaneous (Remove Nicoderm Patch) 1 each N/A DAILY@2058 [facility] Stop: 01/25/24 20:58 Last Admin: 12/29/23 21:18 Dose: 1 each Naloxone HCl (Naloxone Hcl 0.4 Mg/1 Ml Vial/Carp) 0.1 mg IV Q5M PRN PRN Reason: Oversedation/Resp depression Stop: 01/28/24 16:02 Nicotine (Nicotine 14 Mg/24 Hr Patch) 14 mg TD HS [facility] Stop: 01/25/24 20:59 Last Admin: 12/29/23 21:19 Dose: 14 mg Ondansetron HCl (Ondansetron Inj 2 Mg/Ml 2 Ml Vial) 4 mg IV Q6H PRN PRN Reason: Nausea &/or Vomiting Stop: 01/28/24 16:02 Ondansetron HCl (Ondansetron 4 Mg Od Tab) 4 mg PO Q6H PRN PRN Reason: Nausea Stop: 01/28/24 16:02 Oxycodone HCl (Oxycodone Hcl Ir 5 Mg Tab (Immediate Release)) 5 - 10 mg PO Q4H PRN PRN Reason: Pain & Pre PT Stop: 01/12/24 16:02 Last Admin: 12/30/23 07:39 Dose: 10 mg Pneumococcal Polyvalent Vaccine (Do Not Administer Pneumococcal Vaccine) 1 each N/A PRN PRN PRN Reason: Notification Stop: 01/28/24 16:02 Polyethylene Glycol (Polyethylene (Miralax) 17 Gm Pack) 17 gm PO Q6 [facility] Stop: 01/29/24 05:59 Last Admin: 12/30/23 05:54 Dose: 17 gm Senna/Docusate Sodium (Docusate Sodium/Senna 50/8.6mg Tab) 2 tab PO HS [facility] Stop: 01/28/24 20:59 Last Admin: 12/29/23 21:17 Dose: 2 tab Sodium Biphosphate/Sodium Phosphate (Sod Phosphate/Sod Biphosphate Enema 132 Ml Btl) [address] ONE PRN PRN Reason: Constipation Stop: 01/28/24 16:02 Tramadol HCl (Tramadol Hcl 50 Mg Tablet) 50 - 100 mg PO Q4H PRN PRN Reason: Moderate-Severe pain & Pre PT Stop: 01/28/24 16:02 Last Admin: 12/29/23 22:46 Dose: 100 mg
--- NOTE | 2023-12-30 13:20 | Orthopedic Progress Note ---
Date of Service December 30, 2023 Assessment & Plan (1) Lumbar disc herniation with radiculopathy: Plan: Maurice is postoperative day 1 status post TLIF L3-4. He is doing quite well. Maintain ROSA ISELA drain. Continue ambulation and physical therapy. DVT prophylaxis is in the form teds and SCDs. Continue with pain control. Anticipate discharge home tomorrow Admission and Anticipated Discharge Date Admission Date: December 26, 2023 Subjective Maurice is postoperative day 1 status post TLIF L3-4. He feels great. No radicular leg pain. Back pain is controlled. ROSA ISELA drain output last shift was 45 cc. He is up and ambulatory in the hallways. No other complaints. Review of Systems Review of Systems: All systems reviewed & are unremarkable except as noted in HPI & below Physical Exam Physical Exam: He is standing throughout her entire exam in no acute distress Alert and oriented x 3 Lumbar dressing is clean dry and intact with functioning ROSA ISELA drain Strength intact bilateral lower extremities Results & Data Vital Signs (Past 12 Hours) Vital Signs Temp Pulse Resp BP Pulse Ox O2 Del Method 12/30/23 08:00 Room Air 12/30/23 07:37 36.4 C L 75 16 134/74 93 Room Air 12/30/23 03:12 36.6 C 71 18 116/69 96 Room Air
[2023-12-30] MEDS: CYCLOBENZAPRINE HCL 10 MG TAB PO PRN (13:21)
[2023-12-30] MEDS: MAGNESIUM HYDROXIDE SUSP 30 ML UDC PO PRN (19:50)
[2023-12-30] MEDS: MELATONIN 3 MG TAB PO PRN (20:42)
--- NOTE | 2023-12-31 10:42 | Discharge Summary ---
Date of Service December 31, 2023 Admission HPI Per Admitting Provider This is a 28-year-old male who has significant past medical history of ADHD and tobacco abuse who presents to ED secondary to worsening back pain with radiculopathy. Symptoms have been ongoing for the last 8 months. He has been following with [facility] pain management. He denies any significant trauma or injury. He states approximately 8 months ago he woke up with severe stabbing pain to his right low back. 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 Pain is in his right low back and radiates down his right leg with numbness and tingling. He states pain is mostly located on the outside of his leg but also feels in the inside as well. He further complains of weakness. He denies any loss of bowel or bladder. His pain is made worse with lying and improved with standing. He denies any recent illness. He is otherwise healthy. He has been on several rounds of prednisone without significant relief. 3 weeks ago he did have a corticosteroid injection. This did provide about 80% relief for 2 weeks and then his pain returned. They did set him up with orthopedic spine at the end of December, but due to pain being too severe he opted to present to ED. 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 The worst level of canal narrowing is at L3-L4 where it is moderate to severe. Principal Diagnosis Lumbar disc herniation with radiculopathy and neurologic deficit Discharge Data Allergies Allergy/AdvReac Type Severity Reaction Status Date / Time No Known Allergies Allergy Verified 12/26/23 17:00 Consultations 12/26/23 17:52 ED Decision to Admit Stat 12/26/23 17:55 Consult Orthopedic Spine Surgery Routine Procedures Performed Operation Date: 12/29/23 10:55 Actual Procedures p L3-L4 Decompression and Fusion, Spinal Cord Monitoring - Gerardo Boo DO Ordered Studies 12/26/23 18:30 MRI Spine [MR lumbar spine wo con] Routine 12/29/23 09:05 FL lumbar spine 2-3V Routine Hospital Course (1) Lumbar disc herniation with radiculopathy: Patient was admitted with severe radiculopathy underwent lumbar decompression fusion tolerated this well was taken to orthopedic for postoperative. Postop he progressed appropriate. Marked improvement of his leg symptoms and strength. ROSA ISELA drain decreasing appropriately. Excellent strength testing. Subsidy dischar ged home. Discharge orders instructions from the chart for further review. Total Time Total Time Spent Total Time Spent (In Minutes): 20 minutes Discharge Plan Discharge Items Patient Disposition: Home - Self-Care Reason For Visit: BACK PAIN Discharge Diagnosis: Lumbar disc herniation with radiculopathy Activity: As commented below Non-emergency contact: Primary Care Provider Call non-emergency contact if: you have any medication questions Follow-up/Referrals: Tristan Mckay PA-C [Primary Care Provider] - Diet: Regular Addtl Attending Provider Instructions: ACTIVITY RECOMMENDATIONS: SELF CARE INSTRUCTIONS AFTER THORACIC/LUMBAR FUSIONS 1. You may walk to your tolerance. It is good exercise for your legs and back. Expect some back and intermittent leg aches and pains. 2. You may perform "counter-top" level activities (make a sandwich, darwin with a project, etc.). 3. No bending or lifting of more than 10 pounds or back twisting of any nature (roll like a log when turning in bed). 4. You may ride in a car for 20-30 minutes at a time. No driving until after your first visit with your doctor. 5. Frequent changes of position and restricting sitting to 30 minutes at a time will help limit the amount of back spasms and stiffness you may experience. 6. You may discontinue the use of ambulatory aids (cane, crutches, etc.) once your strength and confidence allow. 7. You may color making supervisor the shower and let water strike your incision when you arrive home at least once daily. Do not take a tub bath, sit in a hot tub or go into a swimming pool until after your first recheck in the office. SPECIAL CARE INSTRUCTIONS: VERY IMPORTANT TO READ AND REVIEW A. Your surgical incision has been closed with a cosmetic suture under the skin that will dissolve in about 6 weeks. In 14 days, you can use a pair of clean scissors and cut the suture that is left outside of the skin at the ends of your incision. 1. The small skin tapes can be removed 7 days after surgery if they have not fallen off by that point. 2. You may keep the wound open to air as much as possible to promote healing after post-op day number 5 unless told otherwise by your doctor. 3. If you think the wound looks like it is becoming infected (redness or worsening drainage) and/or you are experiencing fever, chill or worsening back pain and muscle spasms, contact the office so that we may evaluate you as soon as possible. B. Complications are uncommon, but please contact us if you have any signs or symptoms of: 1. wound infection (fever higher than 102.5 degrees F, redness, separation of wound, drainage, or increasing pain from the incision) 2. blood clots in legs (pain, swelling, redness and warmth in legs) 3. urinary tract infection (fever higher than 102.5 degrees F, burning upon urination or increased frequency of urination) 4. nerve problems (inability to walk on your toes or heels, numbness, loss of bowel or bladder control) 5. any other symptoms that concern you C. Please call the office at if you have any concerns or questions about your operation or recovery. D. No smoking! Smoking drastically decreases the chance of a solid fusion. E. Do not take any anti-inflammatory medications (Indocin, Advil, Motrin, Aspirin, Naprosyn, etc.) as these may inhibit the chance of a solid fusion. Tylenol is okay to take for pain. MANAGING PAIN AFTER SPINAL SURGERY 1. Narcotic medication is intended for short-term use and will be provided for surgical pain. Surgical pain usually lasts for a period of 4-6 weeks. Narcotic medication includes Percocet, Vicodin, Darvocet, Tylenol #3 or Lortab. 2. Longer-term pain is more appropriately treated with non-narcotic medication such as Tylenol ES. 3. Muscle spasm is not appropriately treated with narcotics. Muscle relaxers such as Soma, Flexeril or Skelaxin can be used along with Tylenol ES. 4. Remember that we all live with some "aches and pains". This is not unusual or uncommon after an injury or as we get older. a. Back pain is expected and may include muscle spasms for 4 to 6 weeks after surgery. The pain should gradually improve. If the pain worsens for no apparent reason, please contact the office. b. Intermittent leg pain may also be experienced and should not be concerned about unless it worsens for no apparent reason. If so, please contact the office. 5. We will provide appropriate medication within the normal guidelines of their prescribed use. We will also be very cautious and aware of potential abuse and extended duration of patients' medication needs. a. Pain medications are for your comfort and to assist with sleep and rest so that the tissue can heal. They are not provided in order to return to normal activity and should not be used through the day. To do so or worsening pain at night can result from ongoing tissue damage and development of tolerance to the prescribed medicine. 6. Please allow 2-3 days to process refills. Prescriptions will not be mailed but must be picked up at the office. FOLLOW UP VISIT: Keep your scheduled follow-up appointment. Any questions, please call the office at . Pending Studies at Discharge: No Stand-Alone Forms: My [facility] [employer], Smoking Cessation Medications and DC Order Prescriptions: New tramadol 50 mg tablet 50 mg PO Q6H PRN (Reason: pain, moderate) Qty: 30 0RF oxycodone 5 mg tablet 5 mg PO Q6H PRN (Reason: pain) Qty: 30 0RF Continued cyclobenzaprine 10 mg tablet 10 mg PO TID PRN (Reason: MUSCLE SPASMS) magnesium oxide 420 mg Tablet 840 mg PO DAILY dextroamphetamine-amphetamine 20 mg tablet 0 mg PO DAILY Rx Instructions: PER PT "TAKE 20 MG QAM, THEN IF NEEDED ANOTHER 20-30 MG THROUGH OUT THE DAY NEEDED". MAX 50 MG DAILY gabapentin 300 mg capsule 300 mg PO DIRECTED Rx Instructions: STARTED 12/25/23--TAKE 300 MG @ HS FOR 7 DAYS, THEN INCREASE TO 300 MG BID. turmeric root extract 1,053 mg Tablet 1,076 mg PO DAILY Discontinued prednisone 50 mg tablet 50 mg PO DAILY Rx Instructions: STARTED 12/25/23 FOR 5 DAYS Discharge Orders: Discharge Order (Routine); Ordered 12/31/23 Ordered By: Gerardo Boo Admission Data Admit Date/Time: 12/26/23 17:55 Attending Provider: Thanh Dolan Admit Provider: Efe Gutierrez Primary Care Provider: Tristan Mckay Other Providers: Efe Gutierrez; Gerardo Boo
[2023-12-31] MEDS: ACETAMINOPHEN 500 MG TAB PO PRN (10:45)
--- NOTE | 2023-12-31 14:34 | Discharge Summary ---
Date of Service December 31, 2023 Admission HPI Per Admitting Provider This is a 28-year-old male who has significant past medical history of ADHD and tobacco abuse who presents to ED secondary to worsening back pain with radiculopathy. Symptoms have been ongoing for the last 8 months. He has been following with [facility] pain management. He denies any significant trauma or injury. He states approximately 8 months ago he woke up with severe stabbing pain to his right low back. 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 Pain is in his right low back and radiates down his right leg with numbness and tingling. He states pain is mostly located on the outside of his leg but also feels in the inside as well. He further complains of weakness. He denies any loss of bowel or bladder. His pain is made worse with lying and improved with standing. He denies any recent illness. He is otherwise healthy. He has been on several rounds of prednisone without significant relief. 3 weeks ago he did have a corticosteroid injection. This did provide about 80% relief for 2 weeks and then his pain returned. They did set him up with orthopedic spine at the end of December, but due to pain being too severe he opted to present to ED. 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 The worst level of canal narrowing is at L3-L4 where it is moderate to severe. Admission Exam Per Admitting Provider Constitutional: WD/WN, vitals as above, NAD, standing at bedside due to pain, pleasant, conversing easily Head: Normocephalic, Atraumatic Eyes: pupils equal, conjunctivae normal, anicteric sclerae ENMT: external ear and nose normal, oropharynx normal Neck: trachea midline, no thyromegaly normal visual inspection Respiratory: normal respiratory effort, lungs clear to auscultation, no wheeze, rales, rhonchi. Normal insp/exp effort, no accessory muscle use Cardiovascular: RRR, no murmur, no edema Vessels: no JVD or carotid bruit Chest: normal inspection of chest Abdomen: normal bowel sounds, soft, nontender, no hepatosplenomegaly Musculoskeletal: unable to accurately assess strength due to patient unable to sit down b/c of pain Skin: no rashes, warm and dry normal turgor Neurologic: no face palsy, no dysarthria CN's II-XI intact bilaterally and moves all extremities Psychiatric: A+Ox3, euthymic affect : deferred Principal Diagnosis Acute on chronic low back pain Lumbar back pain with radiculopathy affecting right lower extremity Discharge Exam Constitutional: Alert oriented x 3; not in distress. Respiratory: normal respiratory effort, lungs clear to auscultation, no wheeze, rales, rhonchi. Normal insp/exp effort, no accessory muscle use Cardiovascular: RRR, no murmur, no edema Vessels: no JVD or carotid bruit Chest: normal inspection of chest Abdomen: normal bowel sounds, soft, nontender, no hepatosplenomegaly Musculoskeletal: no cyanosis or clubbing, extremities motor strength 5/5. Dressing in place; no soakage. Skin: no rashes, warm and dry normal turgor Neurologic: PERRL, EOMI, accommodation nl, no face palsy, no dysarthria CN's II- XI intact bilaterally and moves all extremities Psychiatric: A+Ox3, euthymic affect Discharge Data Allergies Allergy/AdvReac Type Severity Reaction Status Date / Time No Known Allergies Allergy Verified 12/26/23 17:00 Consultations 12/26/23 17:52 ED Decision to Admit Stat 12/26/23 17:55 Consult Orthopedic Spine Surgery Routine Procedures Performed Operation Date: 12/29/23 10:55 Actual Procedures p L3-L4 Decompression and Fusion, Spinal Cord Monitoring - Gerardo Boo, Ordered Studies 12/26/23 18:30 MRI Spine [MR lumbar spine wo con] Routine 12/29/23 09:05 FL lumbar spine 2-3V Routine Hospital Course (1) Acute exacerbation of chronic low back pain: (2) Lumbar back pain with radiculopathy affecting right lower extremity: (3) Tobacco abuse: (4) ADHD: Plan This is a 28-year-old male who has significant past medical history of ADHD and tobacco abuse who presents to ED secondary to worsening back pain with radiculopathy. 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 He is s/p lumbar decompression fusion L3-L4 on December 29, 2023 He did well postoperatively and his pain is minimal Will change Flexeril to as needed, continue as needed oxycodone Acute blood loss anemia, expected surgical blood loss along with dilution Hemoglobin was 15, suspect hemoconcentrated Hemoglobin 12. Patient will was able to walk on the hallways without any discomfort. Patient discharged home with instruction to follow-up with orthospine and PCP Please note the above document was generated using voice recognition software. It may contain grammatical, syntax or spelling errors. Any formal questions or concerns about the content, text or information contained within the body of this dictation should be directly addressed to the provider for clarification Total Time Total Time Spent Total Time Spent (In Minutes): 35 Total Time Includes: Examination of the Patient, Discharge Planning, Medication Reconciliation, Communication With Other Providers and Other Discharge Plan Discharge Items Patient Disposition: Home - Self-Care Reason For Visit: BACK PAIN Discharge Diagnosis: Lumbar disc herniation with radiculopathy Activity: As commented below Non-emergency contact: Primary Care Provider Call non-emergency contact if: you have any medication questions Follow-up/Referrals: Tristan Mckay PA-C [Primary Care Provider] - 01/06/24 11:00 am Diet: Regular Addtl Attending Provider Instructions: ACTIVITY RECOMMENDATIONS: SELF CARE INSTRUCTIONS AFTER THORACIC/LUMBAR FUSIONS 1. You may walk to your tolerance. It is good exercise for your legs and back. Expect some back and intermittent leg aches and pains. 2. You may perform "counter-top" level activities (make a sandwich, darwin with a project, etc.). 3. No bending or lifting of more than 10 pounds or back twisting of any nature (roll like a log when turning in bed). 4. You may ride in a car for 20-30 minutes at a time. No driving until after your first visit with your doctor. 5. Frequent changes of position and restricting sitting to 30 minutes at a time will help limit the amount of back spasms and stiffness you may experience. 6. You may discontinue the use of ambulatory aids (cane, crutches, etc.) once your strength and confidence allow. 7. You may crm coordinator the shower and let water strike your incision when you arrive home at least once daily. Do not take a tub bath, sit in a hot tub or go into a swimming pool until after your first recheck in the office. SPECIAL CARE INSTRUCTIONS: VERY IMPORTANT TO READ AND REVIEW A. Your surgical incision has been closed with a cosmetic suture under the skin that will dissolve in about 6 weeks. In 14 days, you can use a pair of clean scissors and cut the suture that is left outside of the skin at the ends of your incision. 1. The small skin tapes can be removed 7 days after surgery if they have not fallen off by that point. 2. You may keep the wound open to air as much as possible to promote healing after post-op day number 5 unless told otherwise by your doctor. 3. If you think the wound looks like it is becoming infected (redness or worsening drainage) and/or you are experiencing fever, chill or worsening back pain and muscle spasms, contact the office so that we may evaluate you as soon as possible. B. Complications are uncommon, but please contact us if you have any signs or symptoms of: 1. wound infection (fever higher than 102.5 degrees F, redness, separation of wound, drainage, or increasing pain from the incision) 2. blood clots in legs (pain, swelling, redness and warmth in legs) 3. urinary tract infection (fever higher than 102.5 degrees F, burning upon urination or increased frequency of urination) 4. nerve problems (inability to walk on your toes or heels, numbness, loss of bowel or bladder control) 5. any other symptoms that concern you C. Please call the office at if you have any concerns or questions about your operation or recovery. D. No smoking! Smoking drastically decreases the chance of a solid fusion. E. Do not take any anti-inflammatory medications (Indocin, Advil, Motrin, Aspir in, Naprosyn, etc.) as these may inhibit the chance of a solid fusion. Tylenol is okay to take for pain. MANAGING PAIN AFTER SPINAL SURGERY 1. Narcotic medication is intended for short-term use and will be provided for surgical pain. Surgical pain usually lasts for a period of 4-6 weeks. Narcotic medication includes Percocet, Vicodin, Darvocet, Tylenol #3 or Lortab. 2. Longer-term pain is more appropriately treated with non-narcotic medication such as Tylenol ES. 3. Muscle spasm is not appropriately treated with narcotics. Muscle relaxers such as Soma, Flexeril or Skelaxin can be used along with Tylenol ES. 4. Remember that we all live with some "aches and pains". This is not unusual or uncommon after an injury or as we get older. a. Back pain is expected and may include muscle spasms for 4 to 6 weeks after surgery. The pain should gradually improve. If the pain worsens for no apparent reason, please contact the office. b. Intermittent leg pain may also be experienced and should not be concerned about unless it worsens for no apparent reason. If so, please contact the office. 5. We will provide appropriate medication within the normal guidelines of their prescribed use. We will also be very cautious and aware of potential abuse and extended duration of patients' medication needs. a. Pain medications are for your comfort and to assist with sleep and rest so that the tissue can heal. They are not provided in order to return to normal activity and should not be used through the day. To do so or worsening pain at night can result from ongoing tissue damage and development of tolerance to the prescribed medicine. 6. Please allow 2-3 days to process refills. Prescriptions will not be mailed but must be picked up at the office. FOLLOW UP VISIT: Keep your scheduled follow-up appointment. Any questions, please call the office at . Pending Studies at Discharge: No Stand-Alone Forms: My [facility] [employer], Smoking Cessation Medications and DC Order Prescriptions: New tramadol 50 mg tablet 50 mg PO Q6H PRN (Reason: pain, moderate) Qty: 30 0RF oxycodone 5 mg tablet 5 mg PO Q6H PRN (Reason: pain) Qty: 30 0RF Continued cyclobenzaprine 10 mg tablet 10 mg PO TID PRN (Reason: MUSCLE SPASMS) magnesium oxide 420 mg Tablet 840 mg PO DAILY dextroamphetamine-amphetamine 20 mg tablet 0 mg PO DAILY Rx Instructions: PER PT "TAKE 20 MG QAM, THEN IF NEEDED ANOTHER 20-30 MG THROUGH OUT THE DAY NEEDED". MAX 50 MG DAILY gabapentin 300 mg capsule 300 mg PO DIRECTED Rx Instructions: STARTED 12/25/23--TAKE 300 MG @ HS FOR 7 DAYS, THEN INCREASE TO 300 MG BID. turmeric root extract 1,053 mg Tablet 1,076 mg PO DAILY Discontinued prednisone 50 mg tablet 50 mg PO DAILY Rx Instructions: STARTED 12/25/23 FOR 5 DAYS Discharge Orders: Discharge Order (Routine); Ordered 12/31/23 Ordered By: Gerardo Boo Admission Data Admit Date/Time: 12/26/23 17:55 Attending Provider: Thanh Dolan Admit Provider: Efe Gutierrez Primary Care Provider: Tristan Mckay Other Providers: Efe Gutierrez; Gerardo Boo Other Interventions: Discharge Summary Assessment (RN) Last Done: 12/31/23 11:34
== END 2023-12-31 11:53 | disposition home or self-care (01) | DRG 454 ==
LOC: ED 14:25 → SUATTDRO 17:55 → 3N 17:55
DX: R73.9 Hyperglycemia, unspecified; D62 Acute posthemorrhagic anemia; Y92.019 Unspecified place in single-family (private) house as the place of occurrence of the external cause; M51.16 Intervertebral disc disorders with radiculopathy, lumbar region; T38.0X5A Adverse effect of glucocorticoids and synthetic analogues, initial encounter; F90.9 Attention-deficit hyperactivity disorder, unspecified type; M25.551 Pain in right hip; F17.220 Nicotine dependence, chewing tobacco, uncomplicated; M47.9 Spondylosis, unspecified